=== PATIENT | female | born 1980 | race Caucasian/White ===

== ENCOUNTER 2021-04-01 12:59 | Outpatient (REF) | payer OTHER, SELFPAY ==
[2021-04-03 11:18] LABS: BV Int Neg Control Negative (Negative); BV Int Pos Control Positive (Positive)
[2021-04-03 15:02] LABS: CT PCR NOT DETECTED (Not Detect.); NG PCR NOT DETECTED (Not Detect.)
[2021-04-07 13:47] LABS: HPV mRNA E6/E7 rflx Not Detected (Not Detected)
== END 2021-04-01 13:00 | disposition home or self-care (01) ==
LOC: HO.LAB 12:59
PROVIDERS: Visit Provider Advanced Practice Midwife
DX: Z01.419 Encounter for gynecological examination (general) (routine) without abnormal findings (principal); Z11.51 Encounter for screening for human papillomavirus (HPV); Z20.2 Contact with and (suspected) exposure to infections with a predominantly sexual mode of transmission; F43.21 Adjustment disorder with depressed mood; E66.9 Obesity, unspecified; Z87.42 Personal history of other diseases of the female genital tract
CPT/HCPCS: 87480; 87491; 87510; 87591; 87624; 87660; 88142

== ENCOUNTER 2022-04-05 13:35 | Outpatient (REF) | payer OTHER, SELFPAY ==
[2022-04-09 22:04] LABS: HPV mRNA E6/E7 rflx Not Detected (Not Detected)
== END 2022-04-05 13:36 | disposition home or self-care (01) ==
LOC: HO.LNP 13:35
PROVIDERS: Visit Provider Advanced Practice Midwife
DX: Z01.419 Encounter for gynecological examination (general) (routine) without abnormal findings (principal); Z11.51 Encounter for screening for human papillomavirus (HPV); Z87.42 Personal history of other diseases of the female genital tract
CPT/HCPCS: 87624; 88142

== ENCOUNTER 2022-04-28 09:19 | Outpatient (REF) | payer OTHER, SELFPAY ==
--- NOTE | ~2022-04-28 | MM_ITS ---
EXAMINATION: MM SCREENING DIGITAL BREAST TOMOSYNTHESIS, BILATERAL CLINICAL INFORMATION: Screening. Asymptomatic. The lifetime risk of breast cancer based on the Tyrer-Cuzick Model is 14%. COMPARISON: Mammography: November 13, 2014 and November 03, 2014 TECHNIQUE: Digital breast tomosynthesis is performed in both the craniocaudal and mediolateral oblique views along with computer-aided detection (CAD). Synthesized 2D images are generated from the tomosynthesis. FINDINGS: The breasts are heterogeneously dense, which may obscure small masses (ACR BI-RADS breast composition Category c). There are no significant masses, abnormal calcifications, or other abnormalities. MM/MM tomosynthesis screening BI IMPRESSION: No significant changes ASSESSMENT: BI-RADS 1: Negative RECOMMENDATION: Routine annual mammography screening. This patient's information was entered into a reminder system with a target due date for their next mammogram.
== END 2022-04-28 09:20 | disposition home or self-care (01) ==
LOC: HO.MAMMO 09:19
PROVIDERS: Visit Provider Advanced Practice Midwife
DX: Z12.31 Encounter for screening mammogram for malignant neoplasm of breast (principal)
CPT/HCPCS: 77063; 77067

== ENCOUNTER 2022-05-05 14:14 | Outpatient (REF) | payer OTHER, SELFPAY ==
[2022-05-05 14:59] LABS: Influenza A PCR NEGATIVE (Negative); Influenza B PCR NEGATIVE (Negative); Resp Syncy Virus RNA Qual PCR NEGATIVE (Negative); SARS COV2 PCR INHOUSE NEGATIVE (Negative)
== END 2022-05-05 14:15 | disposition home or self-care (01) ==
LOC: HO.LNP 14:14
PROVIDERS: Visit Provider Nurse Practitioner Family
DX: Z20.822 Contact with and (suspected) exposure to COVID-19 (principal); R09.89 Other specified symptoms and signs involving the circulatory and respiratory systems
CPT/HCPCS: 0241U

== ENCOUNTER 2022-06-07 20:22 | Emergency (ER) | payer OTHER, SELFPAY ==
--- NOTE | 2022-06-07 20:42 | ED_ITS ---
HPI - Nausea/Vomiting/Diarrhea General Chief complaint: Abdominal Pain <Aarti Hollins CNP - Last Filed: 06/07/22 20:45> Stated complaint: Vomiting <Aarti Hollins CNP - Last Filed: 06/07/22 20:45> Time Seen by Provider: 06/07/22 21:05 <Aarti Hollins CNP - Last Filed: 06/07/22 20:45> Source: patient <Jasvir Noriega MD - Last Filed: 06/08/22 00:00> Mode of arrival: ambulatory <Jasvir Noriega MD - Last Filed: 06/08/22 00:00> Limitations: no limitations <Jasvir Noriega MD - Last Filed: 06/08/22 00:00> History of Present Illness HPI Narrative: Patient otherwise healthy had a good day today around 16:00 patient had freshly made steak and 4-day-old leftover food within half an hour patient noticed severe nausea with vomiting multiple times and multiple watery diarrhea had about 10 times each with diffuse abdominal cramping no other family member sick no fever no chills no blood in the stool no recent travel no recent use of antibiotics <Jasvir Noriega MD - Last Filed: 06/08/22 00:00> Related Data Home medications: Home Medications Medication Instructions Recorded Confirmed lorazepam 1 mg tablet 1 mg PO BID PRN 04/01/21 04/05/22 omeprazole 20 mg tablet,delayed 20 mg PO DAILY 04/01/21 04/05/22 release escitalopram oxalate 20 mg tablet 20 mg PO DAILY 04/05/22 04/05/22 (Lexapro) albuterol sulfate 90 mcg/actuation 0 mcg inhalation 05/20/22 aerosol inhaler fexofenadine 180 mg tablet 180 mg PO DAILY 05/20/22 prednisone 50 mg tablet 50 mg PO DAILY 05/20/22 Previous Rx's Medication Instructions Recorded L norgest/E estradiol-E estrad 1 tab PO DAILY 84 days #84 ea 04/05/22 0.15 mg-30 mcg (84)/10 mcg(7) tabs,3mos (Seasonique) amoxicillin 875 mg-potassium 1 tab PO Q12H #14 tabs 05/05/22 clavulanate 125 mg tablet prednisone 20 mg tablet 20 mg PO DAILY #3 tabs 05/20/22 ciprofloxacin HCl 500 mg tablet 500 mg PO BID #6 tabs 06/07/22 (Cipro) dicyclomine 20 mg tablet 20 mg PO QID PRN abdominal pain 06/07/22 #20 tabs ondansetron 4 mg disintegrating 4 mg PO Q6-8H PRN nausea and 06/07/22 tablet vomiting #10 tabs <Aarti Hollins CNP - Last Filed: 06/07/22 20:45> Allergies/Adverse reactions: Allergies Allergy/AdvReac Type Severity Reaction Status Date / Time No Known Allergies Allergy Verified 05/20/22 08:55 [No Known Allergies*] <Aarti Hollins CNP - Last Filed: 06/07/22 20:45> Review of Systems Review of Systems: Yes all other systems are reviewed and are negative <Jasvir Noriega MD - Last Filed: 06/08/22 00:00> [facility] Past Medical History Medical History: Medical History Anxiety Depression H/O gastroesophageal reflux (GERD) Single delivery by <Aarti Hollins CNP - Last Filed: 06/07/22 20:45> Surgical History: Surgical History History of carpal tunnel surgery Hx of section [place] teeth extracted <Aarti Hollins CNP - Last Filed: 06/07/22 20:45> Family History Family History: Family History Father Heart disease Mother Heart disease <Aarit Hollins CNP - Last Filed: 06/07/22 20:45> Social History Social History: Social History Alcohol intake: current Alcohol intake frequency: holidays/special occasions only Patient Tobacco Use Status: Former Tobacco user Advance Directives: No Advance Directives Information Provided: No <Aarti Hollins CNP - Last Filed: 06/07/22 20:45> Physical Exam Vital Signs: Vital Signs: Last Vital Signs Temp 98.1 F 06/07/22 23:19 Pulse 86 06/07/22 23:19 Resp 13 06/07/22 23:19 BP 133/83 06/07/22 23:19 Pulse Ox 99 06/07/22 23:19 O2 Del Method 06/07/22 23:19 BMI result Body Mass Index 39.5 <Aarti Hollins CNP - Last Filed: 06/07/22 20:45> Vital Signs: Last Vital Signs Temp 98.1 F 06/07/22 23:19 Pulse 86 06/07/22 23:19 Resp 13 06/07/22 23:19 BP 133/83 06/07/22 23:19 Pulse Ox 99 06/07/22 23:19 O2 Del Method 06/07/22 23:19 BMI result Body Mass Index 39.5 <Jasvir Noriega MD - Last Filed: 06/08/22 00:00> Appearance: Alert. Oriented X3. No acute distress. Eyes: PERRLA, No Nystagmus ENT: Pharynx normal. Oral Mucosa moist Neck: Normal inspection. Neck supple. CVS: Normal heart rate and rhythm. Pulses normal. Respiratory: No respiratory distress. Equal air entry bilateral, no wheezing/rales/rhonchi Abdomen: Soft , diffuse mild tenderness Bowel sounds are present, no mass palpable, no CVA tenderness Skin: Skin warm and dry. Normal skin color. Normal skin turgor. Extremities: No lower extremity edema. No calf tenderness Neuro: Oriented X 3. No motor deficit. No sensory deficit.No cerebellar signs , cranial nerves II-XII intact <Jasvir Noriega MD - Last Filed: 06/08/22 00:00> Course Course Course Narrative: This is an RME: Additional HPI, ROS, PE not included below will be deferred to primary provider. Patient is a 41 year olf female who presents to the ED for evaluation of nausea, vomiting, diarrhea since 17:00 after eating dinner, home cooked steak. Multiple episodes. associated diffuse ABD pain. Complaining of weakness, chest pain. Fell onto floor in [facility] bathroom, required st aff assistance to get up, denies syncope/ loss of consciousness. Denies head strike. Plan: <Aarti Hollins CNP - Last Filed: 06/07/22 20:45> Medications Administered Discontinued Medications Generic Name Dose Route Start Last Admin Trade Name Freq PRN Reason Stop Dose Admin Dicyclomine HCl 20 mg 06/07/22 21:32 06/07/22 21:41 Dicyclomine Hcl 10 Mg Capsule PO 06/07/22 21:33 20 mg ONCE ONE Administration Sodium Chloride 1,000 mls @ 999 mls/hr 06/07/22 20:45 06/07/22 22:20 Ns IV 06/07/22 21:45 Infused .Q1H1M REENA Infusion Sodium Chloride 1,000 mls @ 999 mls/hr 06/07/22 21:32 06/07/22 22:47 Ns IV 06/07/22 22:32 Infused .Q1H1M ONE Infusion Levofloxacin 500 mg 06/07/22 22:23 06/07/22 22:51 Levofloxacin 500 Mg Tablet PO 06/07/22 22:24 500 mg ONCE ONE Administration Ondansetron HCl 4 mg 06/07/22 20:45 06/07/22 21:16 Ondansetron Hcl 4 Mg/2 Ml Vial IVPUSH 06/07/22 20:46 4 mg ONCE ONE Administration Ondansetron HCl 4 mg 06/07/22 22:28 06/07/22 22:51 Ondansetron Hcl 4 Mg/2 Ml Vial IVPUSH 06/07/22 22:29 4 mg ONCE ONE Administration <Aarti Hollins, GLASS MECH[employer]IC - Last Filed: 06/07/22 20:45> Medications Administered Discontinued Medications Generic Name Dose Route Start Last Admin Trade Name Valente PRN Reason Stop Dose Admin Dicyclomine HCl 20 mg 06/07/22 21:32 06/07/22 21:41 Dicyclomine Hcl 10 Mg Capsule PO 06/07/22 21:33 20 mg ONCE ONE Administration Sodium Chloride 1,000 mls @ 999 mls/hr 06/07/22 20:45 06/07/22 22:20 Ns IV 06/07/22 21:45 Infused .Q1H1M REENA Infusion Sodium Chloride 1,000 mls @ 999 mls/hr 06/07/22 21:32 06/07/22 22:47 Ns IV 06/07/22 22:32 Infused .Q1H1M ONE Infusion Levofloxacin 500 mg 06/07/22 22:23 06/07/22 22:51 Levofloxacin 500 Mg Tablet PO 06/07/22 22:24 500 mg ONCE ONE Administration Ondansetron HCl 4 mg 06/07/22 20:45 06/07/22 21:16 Ondansetron Hcl 4 Mg/2 Ml Vial IVPUSH 06/07/22 20:46 4 mg ONCE ONE Administration Ondansetron HCl 4 mg 06/07/22 22:28 06/07/22 22:51 Ondansetron Hcl 4 Mg/2 Ml Vial IVPUSH 06/07/22 22:29 4 mg ONCE ONE Administration <Jasvir Noriega MD - Last Filed: 06/08/22 00:00> Medical Decision Making Medical Decision Making [facility] Narrative: Patient acute gastroenteritis with slight leukocytosis likely food poisoning/enteritis will give a course of Cipro for 3 days with symptomatic treatment for nausea and diarrhea patient received 2 L of IV fluids feeling much better now taking p.o. fluids <Jasvir Noriega MD - Last Filed: 06/08/22 00:00> Lab Data [facility] Lab Attestation statement: I reviewed the patient's lab results. <Jasvir Noriega MD - Last Filed: 06/08/22 00:00> Result Diagrams: 06/07/22 21:11 06/07/22 21:11 <Aarti Hollins CNP - Last Filed: 06/07/22 20:45> Labs: Lab Results 06/07/22 06/07/22 06/07/22 Range/Units 21:11 21:11 21:11 WBC 14.6 H (4.8-10.8) X10*3/uL RBC 4.93 (4.20-5.50) X10*6/uL Hgb 14.9 (12.0-16.0) g/dl Hct 43.9 (37.0-47.0) % MCV 89.0 (80.0-98.0) fL MCH 30.2 (27.0-33.0) pg MCHC 33.9 (31.0-35.0) g/dl RDW 12.2 (11.0-16.0) % Plt Count 352 (160-400) X10*3/uL MPV 9.1 L (9.4-12.3) fL Immature Gran % (Auto) 0.3 (0.0-0.4) % Neut % (Auto) 92.2 H (45-73) % Lymph % (Auto) 4.0 L (20-40) % [place] % (Auto) 3.2 (2-11) % Eos % (Auto) 0.1 (0-4) % Baso % (Auto) 0.2 (0-2) % Lymph # (Auto) 0.6 L (1.2-4.9) X10*3/uL [place] # (Auto) 0.5 (0.1-1.2) X10*3/uL Eos # (Auto) 0.0 (0.0-0.4) X10*3/uL Baso # (Auto) 0.0 (0.0-0.2) X10*3/uL Abs Immat Gran (auto) 0.05 H (0.00-0.03) X10*3/uL Absolute Neuts (auto) 13.5 H (2.0-8.3) x10*3/uL Absolute Nucleated RBC 0.000 (0.0-0.012) X10*3/uL Nucleated RBC % (auto) 0.0 (0.0-0.2) /100WBC Smear Tech's Comments VERIFIED Sodium 140 (135-145) mmol/L Potassium 4.6 (3.3-5.1) mmol/L Chloride 107 (96-108) mmol/L Carbon Dioxide 18 L (22-29) mmol/L Anion Gap 20 (12-20) BUN 17 H (9-16) mg/dL Creatinine 0.82 (0.5-1.4) mg/dL Estim Creat Clear Calc 115.2 Estimated GFR > 60 Random Glucose 167 H (60-115) mg/dL Calcium 9.4 (8.4-10.2) mg/dL Total Bilirubin 0.8 (0.0-1.0) mg/dL AST 19 (5-31) U/L ALT 27 (0-31) U/L Alkaline Phosphatase 65 (39-117) U/L Troponin I High Sens (<3.5-17.0) ng/L Total Protein 6.8 (6.5-8.0) g/dL Albumin 4.2 (3.5-5.0) g/dL Lipase 20 (8-78) U/L Urine Color Urine Appearance Urine pH (5.0-9.0) Ur Specific [place] (1.005-1.025) Urine Protein (Neg-Trace) mg/dL Urine Glucose (UA) (Negative) mg/dL Urine Ketones (Negative) mg/dL Urine Blood (Negative) Urine Nitrite (Negative) Ur Leukocyte Esterase (Negative) Urine Test (NEGATIVE) COVID-19 (TABATHA) (Negative) COVID-19 Clin Com Influenza Type A (ROMÁN) Negative (Negative) Influenza Type B (ROMÁN) Negative (Negative) Influenza A & B Note See Note 06/07/22 06/07/22 06/07/22 Range/Units 21:11 21:11 22:20 WBC (4.8-10.8) X10*3/uL RBC (4.20-5.50) X10*6/uL Hgb (12.0-16.0) g/dl Hct (37.0-47.0) % MCV (80.0-98.0) fL MCH (27.0-33.0) pg MCHC (31.0-35.0) g/dl RDW (11.0-16.0) % Plt Count (160-400) X10*3/uL MPV (9.4-12.3) fL Immature Gran % (Auto) (0.0-0.4) % Neut % (Auto) (45-73) % Lymph % (Auto) (20-40) % [place] % (Auto) (2-11) % Eos % (Auto) (0-4) % Baso % (Auto) (0-2) % Lymph # (Auto) (1.2-4.9) X10*3/uL [place] # (Auto) (0.1-1.2) X10*3/uL Eos # (Auto) (0.0-0.4) X10*3/uL Baso # (Auto) (0.0-0.2) X10*3/uL Abs Immat Gran (auto) (0.00-0.03) X10*3/uL Absolute Neuts (auto) (2.0-8.3) x10*3/uL Absolute Nucleated RBC (0.0-0.012) X10*3/uL Nucleated RBC % (auto) (0.0-0.2) /100WBC Smear Tech's Comments Sodium (135-145) mmol/L Potassium (3.3-5.1) mmol/L Chloride (96-108) mmol/L Carbon Dioxide (22-29) mmol/L Anion Gap (12-20) BUN (9-16) mg/dL Creatinine (0.5-1.4) mg/dL Estim Creat Clear Calc Estimated GFR Random Glucose (60-115) mg/dL Calcium (8.4-10.2) mg/dL Total Bilirubin (0.0-1.0) mg/dL AST (5-31) U/L ALT (0-31) U/L Alkaline Phosphatase (39-117) U/L Troponin I High Sens < 3.5 (<3.5-17.0) ng/L Total Protein (6.5-8.0) g/dL Albumin (3.5-5.0) g/dL Lipase (8-78) U/L Urine Color Yellow Urine Appearance Clear Urine pH 5.5 (5.0-9.0) Ur Specific [place] 1.020 (1.005-1.025) Urine Protein Negative (Neg-Trace) mg/dL Urine Glucose (UA) Negative (Negative) mg/dL Urine Ketones 80 (Negative) mg/dL Urine Blood Negative (Negative) Urine Nitrite Negative (Negative) Ur Leukocyte Esterase Negative (Negative) Urine Test (NEGATIVE) COVID-19 (TABATHA) Negative (Negative) COVID-19 Clin Com See Note Influenza Type A (ROMÁN) (Negative) Influenza Type B (ROMÁN) (Negative) Influenza A & B Note 06/07/22 Range/Units 22:20 WBC (4.8-10.8) X10*3/uL RBC (4.20-5.50) X10*6/uL Hgb (12.0-16.0) g/dl Hct (37.0-47.0) % MCV (80.0-98.0) fL MCH (27.0-33.0) pg MCHC (31.0-35.0) g/dl RDW (11.0-16.0) % Plt Count (160-400) X10*3/uL MPV (9.4-12.3) fL Immature Gran % (Auto) (0.0-0.4) % Neut % (Auto) (45-73) % Lymph % (Auto) (20-40) % [place] % (Auto) (2-11) % Eos % (Auto) (0-4) % Baso % (Auto) (0-2) % Lymph # (Auto) (1.2-4.9) X10*3/uL [place] # (Auto) (0.1-1.2) X10*3/uL Eos # (Auto) (0.0-0.4) X10*3/uL Baso # (Auto) (0.0-0.2) X10*3/uL Abs Immat Gran (auto) (0.00-0.03) X10*3/uL Absolute Neuts (auto) (2.0-8.3) x10*3/uL Absolute Nucleated RBC (0.0-0.012) X10*3/uL Nucleated RBC % (auto) (0.0-0.2) /100WBC Smear Tech's Comments Sodium (135-145) mmol/L Potassium (3.3-5.1) mmol/L Chloride (96-108) mmol/L Carbon Dioxide (22-29) mmol/L Anion Gap (12-20) BUN (9-16) mg/dL Creatinine (0.5-1.4) mg/dL Estim Creat Clear Calc Estimated GFR Random Glucose (60-115) mg/dL Calcium (8.4-10.2) mg/dL Total Bilirubin (0.0-1.0) mg/dL AST (5-31) U/L ALT (0-31) U/L Alkaline Phosphatase (39-117) U/L Troponin I High Sens (<3.5-17.0) ng/L Total Protein (6.5-8.0) g/dL Albumin (3.5-5.0) g/dL Lipase (8-78) U/L Urine Color Urine Appearance Urine pH (5.0-9.0) Ur Specific [place] (1.005-1.025) Urine Protein (Neg-Trace) mg/dL Urine Glucose (UA) (Negative) mg/dL Urine Ketones (Negative) mg/dL Urine Blood (Negative) Urine Nitrite (Negative) Ur Leukocyte Esterase (Negative) Urine Test NEGATIVE (NEGATIVE) COVID-19 (TABATHA) (Negative) COVID-19 Clin Com Influenza Type A (ROMÁN) (Negative) Influenza Type B (ROMÁN) (Negative) Influenza A & B Note <Aarti Hollins, GLASS MECHANIC - Last Filed: 06/07/22 20:45> Lab Results 06/07/22 06/07/22 06/07/22 Range/Units 21:11 21:11 21:11 WBC 14.6 H (4.8-10.8) X10*3/uL RBC 4.93 (4.20-5.50) X10*6/uL Hgb 14.9 (12.0-16.0) g/dl Hct 43.9 (37.0-47.0) % MCV 89.0 (80.0-98.0) fL MCH 30.2 (27.0-33.0) pg MCHC 33.9 (31.0-35.0) g/dl RDW 12.2 (11.0-16.0) % Plt Count 352 (160-400) X10*3/uL MPV 9.1 L (9.4-12.3) fL Immature Gran % (Auto) 0.3 (0.0-0.4) % Neut % (Auto) 92.2 H (45-73) % Lymph % (Auto) 4.0 L (20-40) % [place] % (Auto) 3.2 (2-11) % Eos % (Auto) 0.1 (0-4) % Baso % (Auto) 0.2 (0-2) % Lymph # (Auto) 0.6 L (1.2-4.9) X10*3/uL [place] # (Auto) 0.5 (0.1-1.2) X10*3/uL Eos # (Auto) 0.0 (0.0-0.4) X10*3/uL Baso # (Auto) 0.0 (0.0-0.2) X10*3/uL Abs Immat Gran (auto) 0.05 H (0.00-0.03) X10*3/uL Absolute Neuts (auto) 13.5 H (2.0-8.3) x10*3/uL Absolute Nucleated RBC 0.000 (0.0-0.012) X10*3/uL Nucleated RBC % (auto) 0.0 (0.0-0.2) /100WBC Smear Tech's Comments VERIFIED Sodium 140 (135-145) mmol/L Potassium 4.6 (3.3-5.1) mmol/L Chloride 107 (96-108) mmol/L Carbon Dioxide 18 L (22-29) mmol/L Anion Gap 20 (12-20) BUN 17 H (9-16) mg/dL Creatinine 0.82 (0.5-1.4) mg/dL Estim Creat Clear Calc 115.2 Estimated GFR > 60 Random Glucose 167 H (60-115) mg/dL Calcium 9.4 (8.4-10.2) mg/dL Total Bilirubin 0.8 (0.0-1.0) mg/dL AST 19 (5-31) U/L ALT 27 (0-31) U/L Alkaline Phosphatase 65 (39-117) U/L Troponin I High Sens (<3.5-17.0) ng/L Total Protein 6.8 (6.5-8.0) g/dL Albumin 4.2 (3.5-5.0) g/dL Lipase 20 (8-78) U/L Urine Color Urine Appearance Urine pH (5.0-9.0) Ur Specific [place] (1.005-1.025) Urine Protein (Neg-Trace) mg/dL Urine Glucose (UA) (Negative) mg/dL Urine Ketones (Negative) mg/dL Urine Blood (Negative) Urine Nitrite (Negative) Ur Leukocyte Esterase (Negative) Urine Test (NEGATIVE) COVID-19 (TABATHA) (Negative) COVID-19 Clin Com Influenza Type A (ROMÁN) Negative (Negative) Influenza Type B (ROMÁN) Negative (Negative) Influenza A & B Note See Note 06/07/22 06/07/22 06/07/22 Range/Units 21:11 21:11 22:20 WBC (4.8-10.8) X10*3/uL RBC (4.20-5.50) X10*6/uL Hgb (12.0-16.0) g/dl Hct (37.0-47.0) % MCV (80.0-98.0) fL MCH (27.0-33.0) pg MCHC (31.0-35.0) g/dl RDW (11.0-16.0) % Plt Count (160-400) X10*3/uL MPV (9.4-12.3) fL Immature Gran % (Auto) (0.0-0.4) % Neut % (Auto) (45-73) % Lymph % (Auto) (20-40) % [place] % (Auto) (2-11) % Eos % (Auto) (0-4) % Baso % (Auto) (0-2) % Lymph # (Auto) (1.2-4.9) X10*3/uL [place] # (Auto) (0.1-1.2) X10*3/uL Eos # (Auto) (0.0-0.4) X10*3/uL Baso # (Auto) (0.0-0.2) X10*3/uL Abs Immat Gran (auto) (0.00-0.03) X10*3/uL Absolute Neuts (auto) (2.0-8.3) x10*3/uL Absolute Nucleated RBC (0.0-0.012) X10*3/uL Nucleated RBC % (auto) (0.0-0.2) /100WBC Smear Tech's Comments Sodium (135-145) mmol/L Potassium (3.3-5.1) mmol/L Chloride (96-108) mmol/L Carbon Dioxide (22-29) mmol/L Anion Gap (12-20) BUN (9-16) mg/dL Creatinine (0.5-1.4) mg/dL Estim Creat Clear Calc Estimated GFR Random Glucose (60-115) mg/dL Calcium (8.4-10.2) mg/dL Total Bilirubin (0.0-1.0) mg/dL AST (5-31) U/L ALT (0-31) U/L Alkaline Phosphatase (39-117) U/L Troponin I High Sens < 3.5 (<3.5-17.0) ng/L Total Protein (6.5-8.0) g/dL Albumin (3.5-5.0) g/dL Lipase (8-78) U/L Urine Color Yellow Urine Appearance Clear Urine pH 5.5 (5.0-9.0) Ur Specific [place] 1.020 (1.005-1.025) Urine Protein Negative (Neg-Trace) mg/dL Urine Glucose (UA) Negative (Negative) mg/dL Urine Ketones 80 (Negative) mg/dL Urine Blood Negative (Negative) Urine Nitrite Negative (Negative) Ur Leukocyte Esterase Negative (Negative) Urine Test (NEGATIVE) COVID-19 (TABATHA) Negative (Negative) COVID-19 Clin Com See Note Influenza Type A (ROMÁN) (Negative) Influenza Type B (ROMÁN) (Negative) Influenza A & B Note 06/07/22 Range/Units 22:20 WBC (4.8-10.8) X10*3/uL RBC (4.20-5.50) X10*6/uL Hgb (12.0-16.0) g/dl Hct (37.0-47.0) % MCV (80.0-98.0) fL MCH (27.0-33.0) pg MCHC (31.0-35.0) g/dl RDW (11.0-16.0) % Plt Count (160-400) X10*3/uL MPV (9.4-12.3) fL Immature Gran % (Auto) (0.0-0.4) % Neut % (Auto) (45-73) % Lymph % (Auto) (20-40) % [place] % (Auto) (2-11) % Eos % (Auto) (0-4) % Baso % (Auto) (0-2) % Lymph # (Auto) (1.2-4.9) X10*3/uL [place] # (Auto) (0.1-1.2) X10*3/uL Eos # (Auto) (0.0-0.4) X10*3/uL Baso # (Auto) (0.0-0.2) X10*3/uL Abs Immat Gran (auto) (0.00-0.03) X10*3/uL Absolute Neuts (auto) (2.0-8.3) x10*3/uL Absolute Nucleated RBC (0.0-0.012) X10*3/uL Nucleated RBC % (auto) (0.0-0.2) /100WBC Smear Tech's Comments Sodium (135-145) mmol/L Potassium (3.3-5.1) mmol/L Chloride (96-108) mmol/L Carbon Dioxide (22-29) mmol/L Anion Gap (12-20) BUN (9-16) mg/dL Creatinine (0.5-1.4) mg/dL Estim Creat Clear Calc Estimated GFR Random Glucose (60-115) mg/dL Calcium (8.4-10.2) mg/dL Total Bilirubin (0.0-1.0) mg/dL AST (5-31) U/L ALT (0-31) U/L Alkaline Phosphatase (39-117) U/L Troponin I High Sens (<3.5-17.0) ng/L Total Protein (6.5-8.0) g/dL Albumin (3.5-5.0) g/dL Lipase (8-78) U/L Urine Color Urine Appearance Urine pH (5.0-9.0) Ur Specific [place] (1.005-1.025) Urine Protein (Neg-Trace) mg/dL Urine Glucose (UA) (Negative) mg/dL Urine Ketones (Negative) mg/dL Urine Blood (Negative) Urine Nitrite (Negative) Ur Leukocyte Esterase (Negative) Urine Test NEGATIVE (NEGATIVE) COVID-19 (TABATHA) (Negative) COVID-19 Clin Com Influenza Type A (ROMÁN) (Negative) Influenza Type B (ROMÁN) (Negative) Influenza A & B Note <Jasvir Noriega MD - Last Filed: 06/08/22 00:00> Discharge Plan Discharge Clinical Impression: Gastroenteritis <Aarti Hollins CNP - Last Filed: 06/07/22 20:45> Patient Disposition: Home, Self-Care <Aarti Hollins CNP - Last Filed: 06/07/22 20:45> Instructions: Gastroenteritis (ED) <Aarti Hollins CNP - Last Filed: 06/07/22 20:45> Additional Instructions: Drink plenty of fluids Antibiotic for 3 days Medicine for nausea and abdominal cramps/diarrhea as prescribed Follow with your PCP if not better <Aarti Hollins CNP - Last Filed: 06/07/22 20:45> Prescriptions: New ciprofloxacin HCl [Cipro] 500 mg tablet 500 mg PO BID Qty: 6 0RF dicyclomine 20 mg tablet 20 mg PO QID PRN (Reason: abdominal pain) Qty: 20 0RF ondansetron 4 mg tablet,disintegrating 4 mg PO Q6-8H PRN (Reason: nausea and vomiting) Qty: 10 0RF No Action amoxicillin-pot clavulanate 875-125 mg tablet 1 tab PO Q12H Qty: 14 0RF albuterol sulfate 90 mcg/actuation HFA aerosol inhaler 0 mcg inhalation fexofenadine 180 mg tablet 180 mg PO DAILY prednisone 50 mg tablet 50 mg PO DAILY prednisone 20 mg tablet 20 mg PO DAILY Qty: 3 0RF escitalopram oxalate [Lexapro] 20 mg tablet 20 mg PO DAILY L norgest/e.estradiol-e.estrad [Seasonique] 0.15 mg-30 mcg (84)/10 mcg (7) tablets,dose pack,3 month 1 tab PO DAILY 84 Days Qty: 84 5RF lorazepam 1 mg tablet 1 mg PO BID PRN omeprazole 20 mg tablet,delayed release (DR/EC) 20 mg PO DAILY <Aarti Hollins CNP - Last Filed: 06/07/22 20:45> Stand Alone Forms: Work/School Release <Aarti Hollins CNP - Last Filed: 06/07/22 20:45>
--- NOTE | 2022-06-07 20:45 | ECG_ITS ---
Test Reason : nausea Blood Pressure : / mmHG Vent. Rate : 091 BPM Atrial Rate : 091 BPM P-R Int : 162 ms QRS Dur : 080 ms QT Int : 394 ms P-R-T Axes : 025 064 015 degrees QTc Int : 484 ms Normal sinus rhythm Nonspecific ST and T wave abnormality No previous ECGs available Referred By: Aarti Hollins Electronically Signed By:ELIDIA CUMMINS MD
[2022-06-07 20:54] VITALS: BP 105/78; PULSE 96; RESP 20; TEMP 37; O2SAT 100; BMI 39.5
[2022-06-07 20:56] VITALS: BP 122/73; PULSE 92; RESP 20; TEMP 37; O2SAT 100
[2022-06-07] MEDS: ondansetron HCL 4 MG/2 ML VIAL IVPUSH ×2 (21:16→22:51)
[2022-06-07] MEDS: 0.9 % Sodium Chloride 1,000 ML 999 ML IV ×2 (21:17→21:43)
[2022-06-07 21:19] LABS: Basophils Percent Auto 0.2 % (0-2); Eosinophils Percent Auto 0.1 % (0-4); Hematocrit 43.9 % (37.0-47.0); Hemoglobin 14.9 g/dl (12.0-16.0); Imm Gran Abs Auto 0.05 X10*3/uL (0.00-0.03); Imm Gran Pct Auto 0.3 % (0.0-0.4); Lymphocytes Absolute Auto 0.6 X10*3/uL (1.2-4.9); MANUAL DIFF FLAG SCAN; Mean Corpuscular HGB Conc 33.9 g/dl (31.0-35.0); Mean Corpuscular Hemoglobin 30.2 pg (27.0-33.0); Mean Platelet Volume 9.1 fL (9.4-12.3); Monocytes Absolute Auto 0.5 X10*3/uL (0.1-1.2); Monocytes Percent Auto 3.2 % (2-11); Neutrophils Absolute Auto 13.5 x10*3/uL (2.0-8.3); Neutrophils Percent Auto 92.2 % (45-73); Platelet Count 352 X10*3/uL (160-400); Red Blood Count 4.93 X10*6/uL (4.20-5.50); Red Cell Distribution Width 12.2 % (11.0-16.0); SCAN SMEAR FLAG 1; White Blood Count 14.6 X10*3/uL (4.8-10.8)
[2022-06-07 21:35] LABS: Alanine Aminotransferase 27 U/L (0-31); Albumin Level 4.2 g/dL (3.5-5.0); Alkaline Phosphatase 65 U/L (39-117); Anion Gap 20 (12-20); Aspartate Amino Transferase 19 U/L (5-31); Bilirubin Total 0.8 mg/dL (0.0-1.0); Blood Urea Nitrogen 17 mg/dL (9-16); Calcium 9.4 mg/dL (8.4-10.2); Carbon Dioxide 18 mmol/L (22-29); Chloride 107 mmol/L (96-108); Creatinine Clr Calc Pharmacy 115.2; Estimated Glomerular Filt Rate > 60; Glucose Random 167 mg/dL (60-115); Lipase 20 U/L (8-78); Potassium 4.6 mmol/L (3.3-5.1); Sodium 140 mmol/L (135-145); Total Protein 6.8 g/dL (6.5-8.0)
[2022-06-07 21:40] LABS: COVID-19 Test Negative (Negative); IDNOW Serial# 6674DD1D
[2022-06-07] MEDS: Dicyclomine HCl 10 MG CAPSULE 20 MG PO (21:41)
[2022-06-07 21:42] LABS: Troponin-I High Sensitivity < 3.5 ng/L (<3.5-17.0)
[2022-06-07 21:55] LABS: SLIDE REVIEW VERIFIED
[2022-06-07 22:03] LABS: IDNOW Serial# 55D5AD1C; Influenza A Negative (Negative)
[2022-06-07 22:04] LABS: Influenza B2 Negative (Negative)
[2022-06-07 22:50] LABS: Appearance Urine Clear; Color Urine Yellow; Glucose Urine UA Negative (Negative); Leukocyte Esterase Urine Negative (Negative); Nitrite Urine Negative (Negative); PH 5.5 (5.0-9.0); Urine Blood Negative (Negative); Urine Ketones 80 mg/dL (Negative); Urine Protein Negative (Neg-Trace)
[2022-06-07 22:51] LABS: UPreg QC Valid YES; Urine Pregnancy NEGATIVE (NEGATIVE)
[2022-06-07] MEDS: levoFLOXacin 500 MG TABLET PO (22:51)
[2022-06-07 23:19] VITALS: BP 133/83; PULSE 86; RESP 13; TEMP 36.7; O2SAT 99
[2022-06-08] MEDS: 0.9 % Sodium Chloride 1,000 ML 999 ML IV (00:15)
[2022-06-08] MEDS: Prochlorperazine Edisylate 10 MG/2 ML VIAL IVPUSH (00:15)
[2022-06-08] MEDS: Loperamide HCl 2 MG CAPSULE PO (00:15)
[2022-06-08 00:45] VITALS: BP 132/80; PULSE 95; RESP 17; O2SAT 97
== END 2022-06-08 01:27 | disposition home or self-care (01) ==
PROVIDERS: Nurse Practitioner Family; Emergency Provider Internal Medicine
DX: K52.9 Noninfective gastroenteritis and colitis, unspecified (principal); Z20.822 Contact with and (suspected) exposure to COVID-19; Z20.828 Contact with and (suspected) exposure to other viral communicable diseases; Z79.899 Other long term (current) drug therapy
CPT/HCPCS: 36415; 80053; 81003; 81025; 83690; 84484; 85025; 87502; 87635; 93005; 96361; 96374; 96375; 96376; 99284; J2405

== ENCOUNTER 2023-04-07 13:04 | Outpatient (REF) | payer OTHER, SELFPAY ==
[2023-04-07 18:39] LABS: CT PCR NOT DETECTED (Not Detect.); NG PCR NOT DETECTED (Not Detect.)
[2023-04-09 11:33] LABS: BV Int Neg Control Negative (Negative); BV Int Pos Control Positive (Positive)
[2023-04-14 02:04] LABS: HPV mRNA E6/E7 rflx Not Detected (Not Detected)
== END 2023-04-07 13:05 | disposition home or self-care (01) ==
LOC: HO.LNP 13:04
PROVIDERS: Visit Provider Advanced Practice Midwife
DX: Z12.4 Encounter for screening for malignant neoplasm of cervix (principal); Z11.51 Encounter for screening for human papillomavirus (HPV); Z87.42 Personal history of other diseases of the female genital tract; E66.01 Morbid (severe) obesity due to excess calories; Z20.2 Contact with and (suspected) exposure to infections with a predominantly sexual mode of transmission; R55 Syncope and collapse; R03.0 Elevated blood-pressure reading, without diagnosis of hypertension
CPT/HCPCS: 0353U; 87480; 87510; 87624; 87660; 88142

== ENCOUNTER 2023-04-07 13:04 | Outpatient (AMB) | payer OTHER, SELFPAY ==
--- NOTE | 2023-04-07 13:07 | A.OFFVIS_ITS ---
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 Intake Note: questions on possible PMDD and would like a IUD placed Lime Kiln Tender Required: No Information Interpreted: non-clinical & clinical Air Defense Specialist: Air Defense Specialist Present (Jon) Allergies No Known Allergies [No Known Allergies*] Allergy (Verified 04/07/23 13:12) Medication List - Last Reconciled 04/07/23 by Estella Skelton CNM albuterol sulfate 90 mcg/actuation 0 mcg inhalation escitalopram oxalate (Lexapro) 20 mg PO DAILY L norgest/e.estradiol-e.estrad 0.15 mg-30 mcg (84)/10 mcg (7) (Seasonique) 1 tab PO DAILY 84 days lorazepam 1 mg PO BID PRN omeprazole 20 mg PO DAILY ondansetron 4 mg PO Q6-8H PRN Is last menstrual period known: Yes Last menstrual period: 03/21/23 Post menopausal: No HPI 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 But she still notices the week before her period that she has very labile emotional symptoms even though she is on the season ache OCPs that a lower to have a menses only once every 3 months she is wondering about having a Mirena placed. It we discussed that had her visit last year and she says she needed to think about it the during this past year. She is sexually active now. 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 And she thinks that may be contributing to it she really wishes she could do things on her own to lose weight and is reluctant to do surgery she said her had lap band surgery and had some issues with it in needed to have it removed moved. He later of cancer. [facility] Medical History Single delivery by H/O gastroesophageal reflux (GERD) Depression Anxiety Surgical History [place] teeth extracted History of carpal tunnel surgery Hx of section Family History Father Heart disease Mother Heart disease Social History Alcohol intake: current Alcohol intake frequency: holidays/special occasions only Patient Tobacco Use Status: Former Tobacco user Female Reproductive History Menstrual Age of Menarche: 14 Duration of menses: 3-5 days Date of last menstrual period: 03/21/23 control method: pills Total pregnancies: 2 Full term: 1 Number of Living Children: 1 Ab spontaneous: 1 Date of last pap smear: 04/07/22 (negative) History of abnormal pap smear: Yes (2020 ASCUS (and hpv pos before that....)) Date of Mammogram: 04/28/22 Physical Exam Vital Signs: Last Vital Signs BP 144/92 H 04/07/23 13:09 BMI result Body Mass Index 41.6 Const Other: Obesity noted General: healthy appearing, comfortable, no acute distress, well developed and alert Nutritional Appearance: average body habitus and obese Orientation/consciousness: patient oriented x3 Limitations: no limitations HEENT Head: Yes normocephalic Neck Neck: Yes normal visual inspection Thyroid: Thyroid normal Chest Chest palpation & inspection: normal inspection of the chest Breast/axilla inspection: normal inspection of the breasts and normal inspection of the axillae Breast/axilla palpation: normal palpation of the breasts and normal palpation of the axillae Resp Effort & Inspection: normal respiratory effort GI Inspection: Yes normal to inspection, No Abdominal wall edema and No distended Palpation (GI): Soft to palpation and nontender Other: Cervix nulliparous very anterior slightly difficult to reach uterus difficult to feel secondary to adipose. Bleeding from within the os noted sometime after the speculum was placed but before Pap or swabs were done. Patient had a vasovagal response after removal of speculum. General: Yes bladder normal to palpation External Female Exam: normal external appearance and normal appearance of the urethra Speculum Exam - Vagina: normal appearance of the vagina, normal palpation and normal vaginal discharge Speculum Exam - Cervix: normal appearance of the cervix, normal palpation and nontender Bimanual exam- vagina & uterus: normal bimanual exam, normal palpation, uterine size normal, bladder normal to palpation, consistency normal, normal palpation, uterine mobility normal, uterine shape normal, No Cervical tenderness present, non-tender and no cervical motion tenderness Bimanual Exam- Adnexa, other: normal adnexae, no masses, normal and No adnexal tenderness Neuro General: patient oriented x3 Results Reviewed Results Reviewed: Name: Nika Arce Age/Sex: 41/F Attending: Estella Skelton CNM : 1980 Submitted by: Estella Skelton CNM Copies to: MR #: [id number] Status: DEP REF Collected: 04/05/22 Location: [facility] Received: 04/07/22 Interpretation Satisfactory for evaluation. Negative for intraepithelial lesion or malignancy. HPV mRNA E6/E7: NOT DETECTED This assay detects E6/E7 viral messenger RNA (mRNA) from 14 high-risk HPV types (16, 18, 31, 33, 35, 39, 45, 51, 52, 56, 58, 59, 66, 68) HPV testing performed by [facility], [place], [place]. See reference laboratory portion of the EMR for entire report. Clinical Information LMP:03/20/22 Previous PAP test:04/05/21 Other history:ASCUS Material Received ThinPrep-Cervical Electronically Signed By: Mery Powers 04/22/22 5711 The Pap Test is a screening procedure with the inherent possibility of both false negative and false positive results. Results should be interpreted in the context of historic and current clinical findings. Reliability of the Pap Test is enhanced by performing the test on a regular repetitive basis. Patient: Nika Arce Age/Sex: 41/F MR#: [id number] Page 1 of 1 Assessment & Plan Assessment & Plan (1) Hx of abnormal cervical Pap smear: Comment: HX OF POS HPV IN PAST,04/01/21 pap= ascus, neg hpv.- asccp recs repeat in 3 yrs..----- PER DISCUSSION W PT REPE.AT PAP W HPV 04/21.- pap repeated 04/05/22= negative with negative HPV. During speculum exam cervix bled from within os briskly before touched with Q-tip or anything Pap repeated 04/07/2023. Code(s): Z87.42 - Personal history of other diseases of the female genital tract (2) Obesity, morbid, BMI 40.0-49.9: Code(s): E66.01 - Morbid (severe) obesity due to excess calories (3) Surveillance for control, oral contraceptives: Code(s): Z30.41 - Encounter for surveillance of contraceptive pills (4) Counseling for control, intrauterine device: Code(s): Z30.09 - Encounter for other general counseling and advice on contraception (5) Vaso-vagal reaction: Code(s): R55 - Syncope and collapse (6) Elevated blood pressure reading: Code(s): R03.0 - Elevated blood-pressure reading, without diagnosis of hypertension Plan -----Discussed in this visit the following: healthy balanced diet, regular and consistent exercise, getting recommended health screens, doing the best she can for her particular health concerns, kegel exercises, pap smear screening and followup recommendations, mammography screening and SBE, normal changes in cycles in her life stage--- . She is up-to-date on her mammograms. Decision to repeat the Pap was made quickly when she had unexpected bleeding from within the os before was touched. Lengthy discussion about her experience of PMDD and what to do about it and previous discussions about the Mirena IU S and how in fact this may be a solution in that it might lead to few were periods and then few her opportunities to feel PMDD on the other hand it is possible she may still feel those symptoms and it may not make a difference what so ever. She decided that she will try it. The patient did have a vasovagal response after sitting up from having the Pap smear done it was delayed by a couple of minutes. Discussed the possible rationale for this from just having had some cervical stimulation. Discussed that she should expect the same thing to happen when she comes for the Mirena. She is going to time Mirena insertion by setting an appointment date for Mirena insertion and then stopping the active pills around 3 days before hand to mimic her placebo week of pills. The goal is to have her heaviest day of her period when she comes in for the Mirena insertion. I also recommend being very clear that she has no unsafe exposure before hand . Also discussed weight loss. Discussed that it does get harder as 1 gets older and the longer goes on the harder it gets. She may need to really increase her efforts in order to see results and it does get difficult when she has a sedentary job. Offered brochure for her to think about the weight management out program but she is not currently interested. Orders: Orders Bacterial Vaginosis Panel Today Z11.3 - Encounter for screening for infections with a predominantly sexual mode of transmission CT NG by PCR Today Z11.3 - Encounter for screening for infections with a predominantly sexual mode of transmission Pap Smear Today Z87.42 - Personal history of other diseases of the female genital tract Coding Level of Care Code Est Pt Prev Care 40-64y(27884) Diagnoses Hx of abnormal cervical Pap smear Z87.42 Obesity, morbid, BMI 40.0-49.9 E66.01 Surveillance for control, oral contraceptives Z30.41 Counseling for control, intrauterine device Z30.09 Vaso-vagal reaction R55 Elevated blood pressure reading R03.0
[2023-04-07 13:09] VITALS: BP 144/92; BMI 41.6
== END 2023-04-07 14:16 | disposition home or self-care (01) ==
PROVIDERS: Visit Provider Advanced Practice Midwife
DX: Z01.419 Encounter for gynecological examination (general) (routine) without abnormal findings (principal); R03.0 Elevated blood-pressure reading, without diagnosis of hypertension; R55 Syncope and collapse; Z30.41 Encounter for surveillance of contraceptive pills; Z87.42 Personal history of other diseases of the female genital tract; E66.01 Morbid (severe) obesity due to excess calories
CPT/HCPCS: 99396

== ENCOUNTER 2023-05-11 09:24 | Outpatient (REF) | payer OTHER, SELFPAY ==
--- NOTE | ~2023-05-11 | MM_ITS ---
EXAMINATION: MM SCREENING DIGITAL BREAST TOMOSYNTHESIS, BILATERAL CLINICAL INFORMATION: Screening. Asymptomatic. COMPARISON: Mammography: This study is compared with prior exams dating back to 2015. TECHNIQUE: Digital breast tomosynthesis is performed in both the craniocaudal and mediolateral oblique views along with computer-aided detection (CAD). Synthesized 2D images are generated from the tomosynthesis. FINDINGS: There are scattered areas of fibroglandular density (ACR BI-RADS breast composition Category b). In the upper outer quadrant of the right breast, there is a focal asymmetry which warrants additional mammographic and targeted sonographic evaluation. The remainder of the right breast is normal. In the left breast, there are no significant masses, abnormal calcifications, or other abnormalities. MM/MM tomosynthesis screening BI IMPRESSION: Focal asymmetry of the right breast warrants additional mammographic and targeted sonographic imaging. No mammographic signs of malignancy right breast. ASSESSMENT: BI-RADS BI-RADS 0 - Incomplete: Needs additional Imaging. RECOMMENDATION: 1. Additional views of the right breast 2. Targeted ultrasound if warranted after review of the additional views. 3. Radiology department staff will contact the patient for additional imaging. Additional Imaging required This examination should not preclude the clinical evaluation of a suspicious palpable abnormality. This patient's information was entered into a reminder system with a target due date for their next mammogram.
== END 2023-05-11 09:25 | disposition home or self-care (01) ==
LOC: HO.MAMMO 09:24
PROVIDERS: PCP Nurse Practitioner Family; Visit Provider Nurse Practitioner Family
DX: Z12.31 Encounter for screening mammogram for malignant neoplasm of breast (principal)
CPT/HCPCS: 77063; 77067

== ENCOUNTER → 2023-05-11 09:30 | Outpatient (BNV) | payer OTHER, SELFPAY | PROVIDERS: PCP Nurse Practitioner Family; Visit Provider Radiology Diagnostic Radiology | DX: Z12.31 Encounter for screening mammogram for malignant neoplasm of breast (principal) | CPT/HCPCS: 77063; 77067 ==

== ENCOUNTER 2023-06-08 13:20 | Outpatient (REF) | payer OTHER, SELFPAY ==
--- NOTE | ~2023-06-08 | US_ITS ---
EXAMINATION: MM DIAGNOSTIC DIGITAL BREAST TOMOSYNTHESIS, RIGHT US BREAST LIMITED, RIGHT MAMMOGRAPHY: CLINICAL INFORMATION: Diagnostic right mammogram. Follow-up focal asymmetry seen on screening exam right breast approximate 9:00 axis middle one third. COMPARISON: Mammography: 05/11/2023, [place]20[place] 10/04/[place] ([place]). TECHNIQUE: Digital breast tomosynthesis is performed in both the craniocaudal and mediolateral oblique views along with computer-aided detection (CAD). Synthesized 2D images are generated from the tomosynthesis. FINDINGS: There are scattered areas of fibroglandular density (ACR BI-RADS breast composition Category b). Diagnostic views demonstrate persistence of the focal asymmetry in the 9:00 axis of the right breast middle one third. This will be evaluated with ultrasound. No additional suspicious findings noted on the right ML view. ULTRASOUND: CLINICAL INFORMATION: Evaluate focal asymmetry 9:00 axis right breast, middle one third. COMPARISON: [place] imaging right breast ultrasound 11/03/2014. TECHNIQUE: Targeted sonographic evaluation was performed using a high frequency linear transducer. Attention was given to the 7:00 to the 11:00 axis of the right breast to include the area of concern. Selected archived documentation. FINDINGS: RIGHT BREAST: There is a simple cyst present in the 9:00 axis, 7 cm from the nipple, measuring 0.5 x 0.3 x 0.6 cm. This correlates well with the mammographic focus of concern and is benign. No further follow-up recommended. No additional abnormality identified. US/US breast RT limited mamm only IMPRESSION: Simple cyst right breast 9:00 axis, correlating with the mammographic focal asymmetry. This is benign. There are no findings suspicious for malignancy in the right breast. Recommend returning to routine screening. OVERALL ASSESSMENT: Mammography: BI-RADS 2 - Benign Findings Ultrasound: BI-RADS 2 - Benign Findings RECOMMENDATION: 1 year F/U This patient's information was entered into a reminder system with a target due date for their next mammogram.
== END 2023-06-08 13:21 | disposition home or self-care (01) ==
LOC: HO.MAMMO 13:20
PROVIDERS: PCP Nurse Practitioner Family; Visit Provider Nurse Practitioner Family
DX: R92.8 Other abnormal and inconclusive findings on diagnostic imaging of breast (principal)
CPT/HCPCS: 76642; 77061; 77065

== ENCOUNTER → 2023-06-08 13:30 | Outpatient (BNV) | payer OTHER, SELFPAY | PROVIDERS: PCP Nurse Practitioner Family; Visit Provider Radiology Diagnostic Radiology | DX: R92.8 Other abnormal and inconclusive findings on diagnostic imaging of breast (principal) | CPT/HCPCS: 76642; 77061; 77065 ==

== ENCOUNTER 2023-06-15 08:40 | Outpatient (AMB) | payer OTHER, SELFPAY ==
--- NOTE | 2023-06-15 08:41 | MHC.OFFWIV ---
Intake Vital Signs 06/15/23 08:43 Height 5 ft 6 in Weight 257 lb BMI 41.5 BP 120/78 Blood Pressure Location Rt brachial Position Sitting Pulse 87 Pulse Source Pulse Oximeter Temp 97.8 F Temp Source Oral Pulse Oximetry (%) 97 Oxygen Delivery Method Room Air Intake Visit Reasons: EP LT hip Pain Intake Note: Pt is here c/o left hip pain. Pt states no falls or injuries. Patient Tobacco Use Status: Former Tobacco user Allergies No Known Allergies [No Known Allergies*] Allergy (Verified 06/15/23 08:43) Do you need a note to return to daycare/school/sports/work: Yes HPI HPI Comments History of Present Illness Details This is a 42-year-old female with a past medical history of asthma and gastroesophageal reflux disease presenting for evaluation of left hip pain that has been present for the past 1 month. Patient denies any injury or trauma preceding the onset of her symptoms and has been taking Advil sporadically without complete relief of her discomfort. Patient states that she is in pain both at rest and with activity but noted today that she had difficulty lifting her left leg when trying to put on her pants and the pain will radiate to her low back. Patient denies having any rashes, lesions, abdominal pain, numbness or tingling in the left lower extremity. [facility] Medical History Single delivery by H/O gastroesophageal reflux (GERD) Depression Anxiety Surgical History [place] teeth extracted History of carpal tunnel surgery Hx of section Family History Father Heart disease Mother Heart disease Social History Alcohol intake: current Alcohol intake frequency: holidays/special occasions only Patient Tobacco Use Status: Former Tobacco user Female Reproductive History Menstrual Age of Menarche: 14 Review of Systems Const All systems reviewed & are unremarkable except as noted in HPI and below Reports as per HPI Musc Reports no additional complaints, Reports back pain, Reports arthralgias (left hip) and Denies joint swelling Skin/Breast Reports system reviewed and no additional complaints, except as documented Physical Exam Vital Signs: Last Vital Signs Temp 97.8 F 06/15/23 08:43 Pulse 87 06/15/23 08:43 BP 120/78 06/15/23 08:43 Pulse Ox 97 06/15/23 08:43 Oxygen Delivery Method Room Air 06/15/23 08:43 BMI result Body Mass Index 41.5 Const General: cooperative, comfortable, well developed, alert and awake; No ill appearing Nutritional Appearance: well nourished and overweight Orientation/consciousness: patient oriented x3 Limitations: no limitations GI Palpation (GI): Soft to palpation, nontender and no guarding Auscultation: normal bowel sounds General: Yes no CVA tenderness Back/Spine/Pelvis Back: no CVA tenderness Thoracic/Lumbar Spine: thoracic and lumbar spine normal to inspection, straight leg raise negative bilaterally, pain with thoraco-lumbar ROM (left lumbar paraspinous tenderness with flexion) and No lumbar spinal tenderness Pelvis: no pain with lateral compression Sacroiliac joints: bilaterally nontender Sacrum: no ecchymosis and no erythema Skin General skin exam: no rashes or lesions noted Neuro General: patient oriented x3 Extrem Left lower extremity: normal to inspection, full ROM (no pain with left hip flexion against resistance) and hip/thigh Details: normal to inspection and tenderness Location: of the hip and other (left hip flexor) Psych Appearance: grossly normal Mental Status: mental status grossly normal Insight: Good insight present (Psych) Judgement: Good judgement present (Psych) Assessment & Plan Assessment & Plan (1) Hip flexor tendinitis: Comment: Given this patient's history coupled with her examination, imaging is deferred at this time. Code(s): M76.899 - Other specified enthesopathies of unspecified lower limb, excluding foot Plan: Naprosyn and Robaxin for 7-10 days; patient will follow up with her primary care provider for a re-evaluation and consideration of referral for physical therapy. Medications: New naproxen (Naprosyn) 500 mg PO BID 20 tabs 0RF methocarbamol 750 mg PO Q8H 20 tabs 0RF Coding Level of Care Code Est Pt Level 3 (58281) Diagnoses Hip flexor tendinitis M76.899 Time Spent (min) 20
[2023-06-15 08:43] VITALS: BP 120/78; PULSE 87; TEMP 36.6; O2SAT 97; BMI 41.5
== END 2023-06-15 10:10 | disposition home or self-care (01) ==
PROVIDERS: PCP Nurse Practitioner Family; Visit Provider Physician Assistant
DX: M76.899 Other specified enthesopathies of unspecified lower limb, excluding foot (principal)
CPT/HCPCS: 99213

== ENCOUNTER → 2024-05-13 09:15 | Outpatient (BNV) | payer OTHER, SELFPAY | PROVIDERS: PCP Nurse Practitioner Family; Visit Provider Internal Medicine | DX: Z12.31 Encounter for screening mammogram for malignant neoplasm of breast (principal) | CPT/HCPCS: 77063; 77067 ==

== ENCOUNTER 2024-05-13 09:20 | Outpatient (REF) | payer OTHER, SELFPAY | END 2024-05-13 09:21 | disposition home or self-care (01) | LOC: HO.MAMMO 09:20 | PROVIDERS: PCP Nurse Practitioner Family; Visit Provider Nurse Practitioner Family | DX: Z12.31 Encounter for screening mammogram for malignant neoplasm of breast (principal) | CPT/HCPCS: 77063; 77067 ==

== ENCOUNTER 2024-07-01 08:37 | Outpatient (AMB) | payer OTHER, SELFPAY ==
--- NOTE | 2024-07-01 09:03 | AM.OFFWIN_ITS ---
Intake Vital Signs 07/01/24 09:14 Weight 260 lb BP 140/100 H Blood Pressure Location Lt brachial Position Sitting Pulse 86 Pulse Source Pulse Oximeter Pulse Oximetry (%) 97 Oxygen Delivery Method Room Air Intake Visit Reasons: EP-lower back pain [phone] Intake Note: Patient here for lower back pain that has been going on for about 4 days. Patient Tobacco Use Status: Former Tobacco user Allergies No Known Allergies [No Known Allergies*] Allergy (Verified 07/01/24 09:03) Do you need a note to return to daycare/school/sports/work: No HPI HPI Comments History of Present Illness Details 43 y/o female patient who presents to [facility] in clinic with c/o Lower back pain for 4 days now. She lifted heavy objects at home. Denies numbness or tingling. Denies Urinary or bowel symptoms. Denies trauma to the back. [facility] TO [facility] Medical History (Updated 07/01/24 @ 09:18 by Little Lozano NP) Low back pain Single delivery by H/O gastroesophageal reflux (GERD) Depression Anxiety Surgical History [place] teeth extracted History of carpal tunnel surgery Hx of section Family History Father Heart disease Mother Heart disease Social History Alcohol intake: current Alcohol intake frequency: holidays/special occasions only Patient Tobacco Use Status: Former Tobacco user Female Reproductive History Menstrual Age of Menarche: 14 Review of Systems Const All systems reviewed & are unremarkable except as noted in HPI and below Physical Exam Vital Signs: Last Vital Signs Pulse 86 07/01/24 09:14 BP 140/100 H 07/01/24 09:14 Pulse Ox 97 07/01/24 09:14 Oxygen Delivery Method Room Air 07/01/24 09:14 Const General: cooperative and no acute distress; No comfortable Nutritional Appearance: obese Orientation/consciousness: patient oriented x3 Back/Spine/Pelvis Back: back tenderness Thoracic/Lumbar Spine: paraspinal muscle tenderness, thoraco-lumbar ROM limited (Due to pain), thoraco-lumbar spasm and lumbar spinal tenderness Neuro General: patient oriented x3, gait normal and moves all extremities Assessment & Plan Assessment & Plan (1) Low back pain: Code(s): M54.50 - Low back pain, unspecified Qualifiers: Back pain laterality: midline Chronicity: acute Sciatica presence: without sciatica Qualified Code(s): M54.50 - Low back pain, unspecified Plan: Rest your back. Apply Ice/Hot Take Ibuprofen Alternating with Acetaminophen for pain relief Ordered Muscle relaxants. Medications: New cyclobenzaprine 10 mg PO BID 20 tabs 0RF M54.50 - Low back pain, unspecified acetaminophen 1,000 mg (2 x 500 mg) PO Q6H PRN 30 caps 0RF pain M54.50 - Low back pain, unspecified lidocaine 5% leave on most painful area for up to 12 hrs 1 patch topical DAILY 30 ea 0RF M54.50 - Low back pain, unspecified Refilled naproxen (Naprosyn) 500 mg PO BID 30 tabs 0RF M54.50 - Low back pain, unspecified Coding Level of Care Code Est Pt Level 4 (11419) Diagnoses Acute midline low back pain without sciatica M54.50 Back pain laterality: midline Chronicity: acute Sciatica presence: without sciatica Time Spent (min) 20
[2024-07-01 09:14] VITALS: BP 140/100; PULSE 86; O2SAT 97
== END 2024-07-01 09:37 | disposition home or self-care (01) ==
PROVIDERS: PCP Nurse Practitioner Family; Visit Provider Nurse Practitioner Family
DX: M54.50 Low back pain, unspecified (principal)

== ENCOUNTER 2024-07-12 14:05 | Outpatient (AMB) | payer OTHER, SELFPAY ==
--- NOTE | 2024-07-12 14:25 | A.OFFVIS_ITS ---
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: Bottom Cementer Present (Flakita) Accompanied by: Self / Same As Patient Allergies No Known Allergies [No Known Allergies*] Allergy (Verified 07/12/24 14:37) Medication List - Last Reconciled 07/12/24 by Estella Skelton CNM acetaminophen 1,000 mg (2 x 500 mg) PO Q6H PRN albuterol sulfate 90 mcg/actuation 0 mcg inhalation bupropion HCl XL mg PO DAILY cyclobenzaprine 10 mg PO BID escitalopram oxalate (Lexapro) 20 mg PO DAILY L norgest/e.estradiol-e.estrad 0.15 mg-30 mcg (84)/10 mcg (7) (Simpesse) 1 tab PO DAILY lidocaine 5% 1 patch topical DAILY lorazepam 1 mg PO BID PRN naproxen (Naprosyn) 500 mg PO BID omeprazole 20 mg PO DAILY ondansetron 4 mg PO Q6-8H PRN Is last menstrual period known: Yes Last menstrual period: 06/25/24 Post menopausal: No Patient : No HPI HPI 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 She says she is up-to-date on her mammograms she says she has not seen her primary care provider in a while and she thinks they just assigned her to a different primary care provider in her primary care office she needs to make an appointment. She says she is up-to-date on her mammograms. She is on Seasonique control pills and likes them and is very much interested in staying on them. Previous discussions have taken place about her elevated blood pressures and my recommendation that we plan on having a Mirena IUD inserted. Because she has had a vasovagal response in the past to getting a Pap smear and she has had a previous and her cervix was tightly closed and indeed difficult to visualize as it is anterior, plan was made to have her stop the active pills in order to plan for the period, to come to allow for insertion of the Mirena IU S ON a day the it would be possible to do, for instance when the office is open. She voiced that she would not want to have a Mirena inserted before the weekend. --but that really.... the more she has thought about it, she does not want a Mirena at all because she does not really want to have anything put inside her.. Discussed at some length the concerns about obesity and the metabolic changes that lead to worsening health conditions over time including elevated blood pressures etc.. Discussed also that it has been awhile since she has been seen by her primary care provider and should have fasting blood work done.. Additionally discussed that the risks with elevated blood pressure and control pills and they are serious and that if her blood pressure is elevated at the end of the visit I will not be able to continue the control pills. Most of this visit was spent discussing her elevated blood pressures and her weight issues. She says she eats really healthy and needs a very low carb low sugar diet but the weight just does not but sometimes it goes up and sometimes it goes down but it generally stays about the same. She has read a lot about the different weight loss medications and they scared her and she is also not interested in any of the weight loss surgeries. At the end of the visit patient's blood pressure was repeated and it was 136/82. 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 While she was waiting for the repeat blood pressure she made an appointment request for her primary care provider.. I will renew her control pills in anticipation that she will have made great success with some life changes in this coming year. If she does have any elevated blood pressures, we would need to change the method of control as we have discussed at length. Anticipating that she will be successful this time, we will see her next year. As part of this discussion many issues were addressed including alternative options available with weight loss medications surgery nutrition or administrative personal assistant coaching etc. I recommend she continue this discussion with her primary care provider. [facility] Medical History Low back pain Single delivery by H/O gastroesophageal reflux (GERD) Depression Anxiety Surgical History [place] teeth extracted History of carpal tunnel surgery Hx of section Family History Father Heart disease Mother Heart disease Social History Alcohol intake: current Alcohol intake frequency: holidays/special occasions only Patient Tobacco Use Status: Former Tobacco user Female Reproductive History Menstrual Age of Menarche: 14 Duration of menses: 3-5 days Date of last menstrual period: 06/25/24 control method: pills Total pregnancies: 2 Full term: 1 Ab spontaneous: 1 Date of last pap smear: 04/07/23 (negative hpv, negative pap smear) History of abnormal pap smear: Yes (2015 +HPV, 2020 ASCUS) Date of Mammogram: 05/13/24 (bi rad 1) Physical Exam Vital Signs: Last Vital Signs BP 138/94 H 07/12/24 14:36 BMI result Body Mass Index 42.0 Const General: healthy appearing, comfortable, no acute distress, well developed and alert Nutritional Appearance: average body habitus Orientation/consciousness: patient oriented x3 Limitations: no limitations HEENT Head: Yes normocephalic Neck Neck: Yes normal visual inspection Chest Chest palpation & inspection: normal inspection of the chest Breast/axilla inspection: normal inspection of the breasts and normal inspection of the axillae Breast/axilla palpation: normal palpation of the breasts and normal palpation of the axillae Resp Effort & Inspection: normal respiratory effort GI Inspection: Yes normal to inspection, No Abdominal wall edema and No distended Palpation (GI): Soft to palpation and nontender Other: External exam within normal limits pink healthy perineum and mucosa cervix nulliparous pink smooth healthy only briefly seen as it is very anterior in vagina and long large Graves speculum necessary adipose limiting visualization cervix nontender adnexa nontender uterus nontender good tone with Kegel. General: Yes bladder normal to palpation External Female Exam: normal external appearance and normal appearance of the urethra Speculum Exam - Vagina: normal appearance of the vagina, normal palpation and normal vaginal discharge Speculum Exam - Cervix: normal appearance of the cervix, normal palpation and nontender Bimanual exam- vagina & uterus: normal bimanual exam, normal palpation, uterine size normal, bladder normal to palpation, consistency normal, normal palpation, uterine mobility normal, uterine shape normal, No Cervical tenderness present, non-tender and no cervical motion tenderness Bimanual Exam- Adnexa, other: normal adnexae, no masses, normal and No adnexal tenderness Neuro General: patient oriented x3 Results Reviewed Results Reviewed: Paps reviewed. REPEAT BLOOD PRESSURE TODAY 136/82. Assessment & Plan Assessment & Plan (1) Well woman exam with routine gynecological exam: Code(s): Z01.419 - Encounter for gynecological examination (general) (routine) without abnormal findings Category: Medical (2) Surveillance for control, oral contraceptives: Code(s): Z30.41 - Encounter for surveillance of contraceptive pills Category: Medical (3) Hx of abnormal cervical Pap smear: Comment: HX OF POS HPV IN PAST,04/01/21 pap= ascus, neg hpv.- asccp recs repeat in 3 yrs..----- PER DISCUSSION W PT REPE.AT PAP W HPV 04/21.- pap repeated 04/05/22= negative with negative HPV. During speculum exam cervix bled from within os briskly before touched with Q-tip or anything Pap repeated 04/07/2023.= Negative w negative HPV. Code(s): Z87.42 - Personal history of other diseases of the female genital tract Category: Medical (4) Elevated blood pressure reading: Comment: REPEAT BLOOD PRESSURE TODAY 07/12/24- DURING THE VISIT, 136/82. PLAN MADE WITH THE PATIENT THAT SHE IS GOING TO BE SPEAKING WITH HER PRIMARY CARE PROVIDER AND RE DOUBLING EFFORTS TO LOSE WEIGHT IN HER OVER TO MAINTAIN HEALTHY BLOOD PRES SURE READINGS....(IF FUTURE BLOOD PRESSURE ELEVATED, WILL NEED TO REVISIT CONTROL AND PLAN FOR OTHER METHOD... 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 She says she is up-to-date on her mammograms she says she has not seen her primary care provider in a while and she thinks they just assigned her to a different primary care provider in her primary care office she needs to make an appointment. She says she is up-to-date on her mammograms. She is on Seasonique control pills and likes them and is very much interested in staying on them. Previous discussions have taken place about her elevated blood pressures and my recommendation that we plan on having a Mirena IUD inserted. Because she has had a vasovagal response in the past to getting a Pap smear and she has had a previous and her cervix was tightly closed and indeed difficult to visualize as it is anterior, plan was made to have her stop the active pills in order to plan for the period, to come to allow for insertion of the Mirena IU S ON a day the it would be possible to do, for instance when the office is open. She voiced that she would not want to have a Mirena inserted before the weekend. --but that really.... the more she has thought about it, she does not want a Mirena at all because she does not really want to have anything put inside her.. Discussed at some length the concerns about obesity and the metabolic changes that lead to worsening health conditions over time including elevated blood pressures etc.. Discussed also that it has been awhile since she has been seen by her primary care provider and should have fasting blood work done.. Additionally discussed that the risks with elevated blood pressure and control pills and they are serious and that if her blood pressure is elevated at the end of the visit I will not be able to continue the control pills. Most of this visit was spent discussing her elevated blood pressures and her weight issues. She says she eats really healthy and needs a very low carb low sugar diet but the weight just does not but sometimes it goes up and sometimes it goes down but it generally stays about the same. She has read a lot about the different weight loss medications and they scared her and she is also not interested in any of the weight loss surgeries. At the end of the visit patient's blood pressure was repeated and it was 136/82. 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 While she was waiting for the repeat blood pressure she made an appointment request for her primary care provider.. I will renew her control pills in anticipation that she will have made great success with some life changes in this coming year. If she does have any elevated blood pressures, we would need to change the method of control as we have discussed at length. Anticipating that she will be successful this time, we will see her next year. As part of this discussion many issues were addressed including alternative options available with weight loss medications surgery nutrition or administrative personal assistant coaching etc. I recommend she continue this discussion with her primary care provider. Orders: Orders CT NG by PCR 07/12/24 Z01.419 - Encounter for gynecological examination (general) (routine) without abnormal findings Bacterial Vaginosis Panel 07/12/24 Z01.419 - Encounter for gynecological examination (general) (routine) without abnormal findings Medications: Changed From L norgest/e.estradiol-e.estrad 0.15 mg-30 mcg (84)/10 mcg (7) (Simpesse) needs to bee seen in office. 1 tab PO DAILY 91 tabs 0RF To L norgest/e.estradiol-e.estrad 0.15 mg-30 mcg (84)/10 mcg (7) (Simpesse) RTC 1 year for blood pressure check... 1 tab PO DAILY 91 tabs 3RF Coding Level of Care Code Est Pt Prev Care 40-64y(53775) Diagnoses Well woman exam with routine gynecological exam Z01.419 Surveillance for control, oral contraceptives Z30.41 Hx of abnormal cervical Pap smear Z87.42 Elevated blood pressure reading R03.0 Obesity, morbid, BMI 40.0-49.9 E66.01
[2024-07-12 14:36] VITALS: BP 136/82; BMI 42.0
== END 2024-07-12 16:18 | disposition home or self-care (01) ==
LOC: HO.HWS 14:05
PROVIDERS: PCP Nurse Practitioner Family; Visit Provider Advanced Practice Midwife
DX: Z01.419 Encounter for gynecological examination (general) (routine) without abnormal findings (principal); R03.0 Elevated blood-pressure reading, without diagnosis of hypertension; Z87.42 Personal history of other diseases of the female genital tract; E66.01 Morbid (severe) obesity due to excess calories
CPT/HCPCS: 99396; 99459

== ENCOUNTER 2024-07-12 14:05 | Outpatient (REF) | payer OTHER, SELFPAY ==
[2024-07-13 06:15] LABS: CT PCR NOT DETECTED (Not Detect.); NG PCR NOT DETECTED (Not Detect.)
[2024-07-13 08:40] LABS: Bacterial Vaginosis PCR NEGATIVE (Negative); Candida Group PCR NOT DETECTED (Not Detect); Candida glab krusei PCR NOT DETECTED (Not Detect); Trichomonas vaginalis PCR NOT DETECTED (Not Detect)
== END 2024-07-12 14:06 | disposition home or self-care (01) ==
LOC: HO.LNP 14:05
PROVIDERS: PCP Nurse Practitioner Family; Visit Provider Advanced Practice Midwife
DX: Z01.419 Encounter for gynecological examination (general) (routine) without abnormal findings (principal); N89.8 Other specified noninflammatory disorders of vagina; Z87.42 Personal history of other diseases of the female genital tract; Z79.3 Long term (current) use of hormonal contraceptives
CPT/HCPCS: 81515; 87491; 87591

== ENCOUNTER 2024-09-13 11:59 | Outpatient (REF) | payer OTHER, SELFPAY ==
--- NOTE | ~2024-09-13 | XR_ITS ---
EXAMINATION: XR FOOT, RIGHT CLINICAL INFORMATION: M79.671 - Pain in right foot COMPARISON: None available. TECHNIQUE: AP, lateral, and oblique views of the right foot. FINDINGS: No fracture, dislocation, or suspicious bone lesion. Normal bone mineralization. Normal alignment. Joint spaces are preserved. No significant arthropathy. There is a tiny plantar calcaneal spur. Soft tissues appear normal. XR/XR foot RT min 3V IMPRESSION: No acute bony abnormalities of the right foot. Electronically signed by: To Montenegro MD 09/13/2024 03:45 PM EDT
== END 2024-09-13 12:00 | disposition home or self-care (01) ==
LOC: HO.HMGCX 11:59
PROVIDERS: PCP Family Medicine; Visit Provider Physician Assistant
DX: M79.671 Pain in right foot (principal)
CPT/HCPCS: 73630

== ENCOUNTER 2024-09-13 11:59 | Outpatient (AMB) | payer OTHER, SELFPAY ==
--- OUTSIDE RECORDS SUMMARY | 2024-09-13 12:01 | XMS_ITS | Encounter Summary ---
Author Organization [facility] Address [address] [place] [address] Care Team Providers Care Chorus Master Name Role Phone Justin Londono MD Primary Care Provider [phone] Community, Pcp Primary Care Provider Unavailabl e Encounter Details Date Type Department Care Team Description 04/26/2016 Zika Virus Medical Records [address] [place] [id number] Abstract, Provider Social History Tobacco Use Types Packs/Day Years Used Date Smoking Tobacco: Former Cigarettes 0 05/01/1992 - 08/29/2009 Smokeless Tobacco: Never Comments:social smoker, star diane @ age 13 ,smoking about 2 packs a week Alcohol Use Standard Drinks/Week Comments No 0 (1 standard drink = 0.6 oz pure alcohol) drank alcohol-wine on [place] where they concieved Sex Assigned at Date Recorded Not on file documented as of this encounter Plan of Treatment Not on file documented as of this encounter Visit Diagnoses Not on filedocumented in this encounter Care Teams Chorus Master Relationship Specialty Start Date End Date Justin Londono MD [address] [place] [address] [id number] PCP - General Internal Medicine 01/01/15 03/19/21 [facility], Pcp [address] [place] [address] PCP - General Internal Medicine 03/20/21 documented as of this encounter
--- OUTSIDE RECORDS SUMMARY | 2024-09-13 12:01 | XMS_ITS | Encounter Summary ---
Author Organization [facility] Address [address] [place] [address] Care Team Providers Care Flat Folding Machine Operator Name Role Phone Justin Londono MD Primary Care Provider Count Includes [facility], Pcp Primary Care Provider Unavailabl e Encounter Details Date Type Department Care Team Description 04/21/2016 Pt. Non Urgent Medical Question OBGYN - [place] [address] [place], [place] [phone] Machelle Thurman CNM [address] [place], [place] [phone] Social History Tobacco Use Types Packs/Day Years [...] on file documented as of this encounter Progress Notes * TIFFANY Silveira, RN - 04/22/2016 4:54 PM ESTFrom: Nika Arce To: Machelle Thurman CNM Sent: 04/21/2016 2:09 PM EST Subject: Missing info from today's appointment Nicolás, I had my first appt with Alma today to go over my medical history etc. and I forgot to mention acouple things... my mother has spinal stenosis and scoliosis (not osteoporosis), and my paternal grandmother had a stillborn baby. Nika Gonzáles documented in this encounter Plan of Treatment Not on file documented as of this encounter Visit Diagnoses Not on filedocumented in this encounter Care Teams Flat Folding Machine Operator Relationship Specialty Start Date End Date Justin Londono MD [address] [place] [address] PCP - General Internal Medicine 01/01/15 03/19/[address] [address] PCP - General Internal Medicine 03/20/21 documented as of this encounter
--- OUTSIDE RECORDS SUMMARY | 2024-09-13 12:01 | XMS_ITS | Encounter Summary ---
Author Organization [facility] Address [address] [place] [address] Care Team Providers Care Documentation Designer Name Role Phone Justin Londono MD Primary Care Provider [phone] [facility], Pcp Primary Care Provider Unavailabl e Reason for Visit * Reason Onset Date Comments Medication 03/28/2016 Encounter Details Date Type Department Care Team Description 03/28/2016 Pt. Non Urgent Medical Question Adult Medicine [address] [phone] Justin Londono MD [address] [place] [address] [phone] Social History Tobacco Use Types Packs/Day Years Used Date Smoking Tobacco: Former Cigarettes 0 05/01/1992 - 08/29/2009 Smokeless Tobacco: Never Comments:social smoker, kristofer contreras @ age 13 ,smoking about 2 packs a week Alcohol Use Standard Drinks/Week Comments No 0 (1 standard drink = 0.6 oz pur e alcohol) Sex Assigned at Date Recorded Not on file documented as of this encounter Progress Notes * Emmanuelle ArguelloPSeunNSeun - 03/28/2016 3:35 PM ESTFrom: Nika Sheets To: Justin Londono MD Sent: 03/28/2016 12:23 PM EST Subject: Zoloft Nicolás, I just wanted to notify you that I stopped taking Zoloft because I am and I would prefer to not put any medications in my body unless absolutely necessary. Should anything change or if I feel the need to go back on Zoloft for anxiety, I will call the office. ThanksNika documented in this encounter Plan of Treatment Not on file documented as of this encounter Visit Diagnoses Not on filedocumented in this encounter Care Teams Documentation Designer Relationship Specialty Start Date End Date Justin Londono MD [address] [place] [address] PCP - General Internal Medicine 01/01/15 03/19/21 [facility], [address] [address] PCP - General Internal Medicine 03/20/21 documented as of this encounter
--- OUTSIDE RECORDS SUMMARY | 2024-09-13 12:01 | XMS_ITS | Encounter Summary ---
Author Organization [facility] Address [address] [place] [address] Care Team Providers Care Psychologist Experimental Name Role Phone More Horne MD Primary Care Provider [phone] Ignacio Daniel MD Primary Care Provider Leo Anderson MD Primary Care Provider Unavail able Justin Londono MD Primary Care Provider [facility], [facility] Primary Care Provider Unavailabl e Encounter Details Date Type Department Care Team Description 08/04/2010 Eye Refractory Products Supervisor Report Medical Records [address] [place] [id number] Tyra Arguelles Social History Tobacco Use Types Packs/Day Years Used Date Smoking Tobacco: Former Cigarettes Comments:social smoker, star diane @ age 13 ,smoking about 2 packs a week Alcohol Use Standard Drinks/Week Comments No 0 (1 standard drink = 0.6 oz pur e alcohol) Sex Assigned at Date Recorded Not on file documented as of this encounter Plan of Treatment Not on file documented as of this encounter Visit Diagnoses Not on filedocumented in this encounter Care Teams Psychologist Experimental Relationship Specialty Start Date End Date More Horne MD [address] [place] [address] PCP - General 08/21/1998 01/20/14 Ignacio Daniel MD [address] [place] [address] PCP - General Internal Medicine 01/21/14 03/18/14 Leo Anderson MD [address] [place] [address] PCP - General Internal Medicine 03/19/14 12/31/14 Justin Londono MD [address] [place] [address] PCP - General Internal Medicine 01/01/15 03/19/21 [facility], [address] [address] PCP - General Internal Medicine 03/20/21 documented as of this encounter
--- OUTSIDE RECORDS SUMMARY | 2024-09-13 12:01 | XMS_ITS | Encounter Summary ---
Author Organization [facility] Address [address] [place] [address] Care Team Providers Care Time Recorder Name Role Phone Justin Londono MD Primary Care Provider [facility], Pcp Primary Care Provider Unavailabl e Reason for Visit * Reason Onset Date Comments 06/22/2016 Transfer Records 06/22/2016 Encounter Details Date Type Department Care Team Description 06/22/2016 Telephone OBGYN - [place] [address] [place], [place] [phone] Machelle Thurman, KARELY [address] [place], [place] [phone] ; Transfer Records Social History Tobacco Use Types Packs/Day Years [...] on file documented as of this encounter Miscellaneous Notes * Telephone Encounter - Peyton Elizabeth - 06/22/2016 3:39 PM EST Noted. 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
--- OUTSIDE RECORDS SUMMARY | 2024-09-13 12:01 | XMS_ITS | Encounter Summary ---
Author Organization [facility] Address [address] [place] [address] Care Team Providers Care Sales Manager Prearranged Funerals Name Role Phone Justin Londono MD Primary Care Provider [facility], Pcp Primary Care Provider Unavailabl e Reason for Visit * Reason Comments E-prescribe Rx Request Encounter Details Date Type Department Care Team Description 07/04/2016 Refill OBGYN - [place] [address] [place], [place] [phone] Machelle Thurman CNM [address] [place], [place] [phone] E-prescribe Rx Request Social History Tobacco Use Types Packs/Day Years [...] encounter Miscellaneous Notes * Telephone Encounter - Machelle Thurman CNM - 07/04/2016 1:50 PM EST Patient transferred care to [facility] * Telephone Encounter - Jazlyn Kelley - 07/04/2016 1:36 PM EST WHEN WAS THE PATIENTS LAST ANNUAL CONSUMER MARKETING ANALYST EXAM? Was seen for ob in June Does patient have an upcoming appointment? No (THE MEDICATION REQUESTED IS ON THE MED LIST ABOVE) Did you check the Pharmacy information above?: NO Indicate how soon the patient needs the script: BY THE END OF THE DAY Patient would like script to be: E-PRESCRIBED/FAXED TO PHARMACY Is the doctor here today?: YES Can the message wait until the doctor returns?: YES Has the patient been told that the prescription will not be filled until the end of the day? NO Payor: [facility] [place]/[employer] / Plan: [employer] $[address] [place] [id number] / Product Type: [employer] [id number] documented in this encounter Plan of Treatment Not on file documented as of this encounter Visit Diagnoses Not on filedocumented in this encounter Care Teams Sales Manager Prearranged Funerals Relationship Specialty Start Date End Date Justin Londono MD [address] [place] [address] PCP - General Internal Medicine 01/01/15 03/19/[address] [address] PCP - General Internal Medicine 03/20/21 documented as of this encounter
--- OUTSIDE RECORDS SUMMARY | 2024-09-13 12:01 | XMS_ITS | Encounter Summary ---
Author Organization [facility] Address [address] [place] [address] Care Team Providers Care Flat Optical Element Maker Name Role Phone More Horne MD Primary Care Provider [phone] Ignacio Daniel MD Primary Care Provider [phone] Leo Anderson MD Primary Care Provider Unavail able Justin Londono MD Primary Care Provider [facility], [facility] Primary Care Provider Unavailabl e Encounter Details Date Type Department Care Team Description 08/30/2013 Mixer Wet Pour Report Medical Records [address] [place] [address] Jasen Melvin MD Social History Tobacco Use Types Packs/Day Years Used Date Smoking Tobacco: Former Cigarettes Q uit: 08/29/2009 Smokeless Tobacco: Never Comments:social smoker, star [...] filedocumented in this encounter Care Teams Flat Optical Element Maker Relationship Specialty Start Date End Date More Horne MD [address] [place] [address] PCP - General 08/21/1998 01/20/14 Ignacio Daniel MD [address] [place] [address] PCP - General Internal Medicine 01/21/14 03/18/14 Leo Anderson MD [address] [place] [address] PCP - General Internal Medicine 03/19/14 12/31/14 Justin Londono MD [address] [place] [address] PCP - General Internal Medicine 01/01/15 03/19/21 [facility], [place] [address] PCP - General Internal Medicine 03/20/21 documented as of this encounter
--- OUTSIDE RECORDS SUMMARY | 2024-09-13 12:01 | XMS_ITS | Encounter Summary ---
Author Organization [facility] Address [address] [place] [address] Care Team Providers Care Primary Counselor Name Role Phone Justin Londono MD Primary Care Provider [phone] [facility], Pcp Primary Care Provider Unavailabl e Reason for Visit * Reason Comments E-prescribe Rx Request Encounter Details Date Type Department Care Team Description 06/11/2016 Refill OBGYN - [place] [address] [place], [place] [phone] Machelle Thuramn, [facility] [address] [place], [place] [phone] E-prescribe Rx Request Social History Tobacco Use [...] encounter Miscellaneous Notes * Telephone Encounter - Jeffery Browning - 06/13/2016 9:09 AM EST WHEN WAS THE PATIENTS LAST ANNUAL BAGGAGE AND MAIL AGENT EXAM? 06/09/15 Does patient have an upcoming appointment? Yes 07/01/16 (THE MEDICATION REQUESTED IS ON THE MED LIST ABOVE) Did you check the Pharmacy information above?: YES Indicate how soon the patient needs the script: BY THE END OF THE DAY Patient would like script to be: E-PRESCRIBED/FAXED TO PHARMACY Is the doctor here today?: NO Can the message wait until the doctor returns?: NO Has the patient been told that the prescription will not be filled until the end of the day? NO Payor: LORNA/Asantae FFS / Plan: Incisive SurgicalO $20 [place] [id number] / Product Type: Incisive SurgicalO [id number] documented in this encounter Plan of Treatment Not on file documented as of this encounter Visit Diagnoses Not on filedocumented in this encounter Care Teams Primary Counselor Relationship Specialty Start Date End Date Justin Londono MD [address] [place] [address] PCP - General Internal Medicine 01/01/15 03/19/21 [facility] [place] [address] [place] [address] PCP - General Internal Medicine 03/20/21 documented as of this encounter
--- OUTSIDE RECORDS SUMMARY | 2024-09-13 12:01 | XMS_ITS | Encounter Summary ---
Author Organization [facility] Address [address] [place] [address] Care Team Providers Care Windows Mobile Developer Name Role Phone Justin Londono MD Primary Care Provider [phone] [facility], Pcp Primary Care Provider Unavailabl e Encounter Details Date Type Department Care Team Description 11/30/2015 Field Captain Report Medical Records [address] [place] [address] Savannah Cunningham MD Social History Tobacco Use Types Packs/Day [...] on filedocumented in this encounter Care Teams Windows Mobile Developer Relationship Specialty Start Date End Date Justin Londono MD [address] [place] [address] [phone] PCP - General Internal Medicine 01/01/15 03/19/21 [facility], Pcp [address] [place] [address] PCP - General Internal Medicine 03/20/21 documented as of this encounter
--- OUTSIDE RECORDS SUMMARY | 2024-09-13 12:01 | XMS_ITS | Encounter Summary ---
Author Organization [employer] [facility] Address [address] [place] [address] Care Team Providers Care Hydrologic Engineer Name Role Phone Justin Londono MD Primary Care Provider [facility], Pcp Primary Care Provider Unavailabl e Encounter Details Date Type Department Care Team Description 02/20/2016 Release of Information Medical Records [address] [place] [address] Abstract, Provider Social History Tobacco Use Types [...] on filedocumented in this encounter Care Teams Hydrologic Engineer Relationship Specialty Start Date End Date Justin Londono MD [address] [place] [address] PCP - General Internal Medicine 01/01/15 03/19/21 [facility], Pcp [address] [place] [address] PCP - General Internal Medicine 03/20/21 documented as of this encounter
--- OUTSIDE RECORDS SUMMARY | 2024-09-13 12:01 | XMS_ITS | Encounter Summary ---
Author Organization [facility] Address [address] [place] [address] Care Team Providers Care Client Manager Large Law Name Role Phone Justin Londono MD Primary Care Provider [facility], Pcp Primary Care Provider Unavailabl e Encounter Details Date Type Department Care Team Description 05/13/2016 [facility] Medical Records [address] [place] [address] Abstract, Provider Social History Tobacco Use Types [...] on filedocumented in this encounter Care Teams Client Manager Large Law Relationship Specialty Start Date End Date Justin Londono MD [address] [place] [address] [phone] PCP - General Internal Medicine 01/01/15 03/19/21 [facility], Pcp [address] [place] [address] PCP - General Internal Medicine 03/20/21 documented as of this encounter
--- OUTSIDE RECORDS SUMMARY | 2024-09-13 12:01 | XMS_ITS | Encounter Summary ---
Author Organization [facility] Address [address] [place] [address] Care Team Providers Care Agronomy Manager Name Role Phone More Horne MD Primary Care Provider [phone] Ignacio Daniel MD Primary Care Provider Leo Anderson MD Primary Care Provider Unavail able Justin Londono MD Primary Care Provider [facility], [facility] Primary Care Provider Unavailabl e Encounter Details Date Type Department Care Team Description 02/04/2013 Kapok Machine Operator Report Medical Records [address] [place] [address] Savannah Cunningham MD Social History Tobacco Use [...] on filedocumented in this encounter Care Teams Agronomy Manager Relationship Specialty Start Date End Date More Horne MD [address] [place] [address] PCP - General 08/21/1998 01/20/14 Ignacio Daniel MD [address] [place] [address] PCP - General Internal Medicine 01/21/14 03/18/14 Leo Anderson MD [address] [place] [address] PCP - General Internal Medicine 03/19/14 12/31/14 Justin Londono MD [address] [place] [address] PCP - General Internal Medicine 01/01/15 03/19/21 [facility], [place] [address] PCP - General Internal Medicine 03/20/21 documented as of this encounter
--- OUTSIDE RECORDS SUMMARY | 2024-09-13 12:01 | XMS_ITS | Encounter Summary ---
Author Organization [facility] Address [address] [place] [address] Care Team Providers Care Senior Vice President And Chief Information Officer Name Role Phone Justin Londono MD Primary Care Provider [facility] [place] [facility], Pcp Primary Care Provider Unavailabl e Encounter Details Date Type Department Care Team Description 06/03/2016 Pt. Non Urgent Medical Question OBGYN - [place] [address] [place], [place] [phone] Machelle Thurman CNM [address] [place], [place] [phone] Social History Tobacco Use Types Packs/Day Years [...] as of this encounter Progress Notes * Peyton Elizabeth - 06/03/2016 1:29 PM ESTFrom: Nika Arce To: Machelle Thurman CNM Sent: 06/03/2016 12:47 PM EST Subject: Question about after care summary Nasirlo, I was seen yesterday and on my after care summary it said something about strep. Can you tell me why that was on there? Nika Gonzáles documented in this encounter Plan of Treatment Not on file documented as of this encounter Visit Diagnoses Not on filedocumented in this encounter Care Teams Senior Vice President And Chief Information Officer Relationship Specialty Start Date End Date Justin Londono MD [address] [place] [address] PCP - General Internal Medicine 01/01/15 03/19/21 [facility], [address] [address] PCP - General Internal Medicine 03/20/21 documented as of this encounter
--- OUTSIDE RECORDS SUMMARY | 2024-09-13 12:01 | XMS_ITS | Encounter Summary ---
Author Organization [facility] Address [address] [place] [address] Care Team Providers Care Permastone Installer Name Role Phone Justin Londono MD Primary Care Provider [facility], Pcp Primary Care Provider Unavailabl e Reason for Visit * Reason Onset Date Comments Letter 02/05/2016 Encounter Details Date Type Department Care Team Description 02/05/2016 Telephone Adult Medicine [address] [phone] Justin Londono MD [address] [place] [address] [phone] Letter Social History Tobacco Use Types Packs/Day Years [...] encounter Miscellaneous Notes * Telephone Encounter - Justin Londono MD - 02/08/2016 8:32 AM EDT Letter printed * Telephone Encounter - Kellie Kumar - 02/05/2016 4:35 PM EDT Letter requested for: Travel Reason for letter: Patient is traveling to [place] on 02/11/16 and needs a letter stating the medication she is taking so that she can travel with them. Please help. Specific notations needed in body of letter: Medication patient is on. Date needed for completion: MARK When completed: Will pick remover-call when completed: (home) documented in this encounter Plan of Treatment Not on file documented as of this encounter Visit Diagnoses Not on filedocumented in this encounter Care Teams Permastone Installer Relationship Specialty Start Date End Date Justin Londono MD [address] [place] [address] PCP - General Internal Medicine 01/01/15 03/19/21 [facility], [address] [address] PCP - General Internal Medicine 03/20/21 documented as of this encounter
--- OUTSIDE RECORDS SUMMARY | 2024-09-13 12:01 | XMS_ITS | Encounter Summary ---
Author Organization [facility] Address [address] [place] [address] Care Team Providers Care Production Engineer Track Name Role Phone More Horne MD Primary Care Provider [phone] Ignacio Daniel MD Primary Care Provider [phone] Leo Anderson MD Primary Care Provider Unavail able Justin Londono MD Primary Care Provider [phone] [facility], [facility] Primary Care Provider Unavailabl e Encounter Details Date Type Department Care Team Description 08/20/2013 Hospital Medical Records [address] [place] [address] Jasen Melvin MD Social History Tobacco Use Types Packs/Day Years Used Date Smoking Tobacco: Former Cigarettes 0.5 0 05/01/1992 - 08/29/2009 Smokeless Tobacco: Former Comments:social smoker, star diane @ age 13 ,smoking about 2 packs a week Alcohol Use Standard Drinks/Week Comments No 0 (1 standard drink = 0.6 oz pur e alcohol) Sex Assigned at Date Recorded Not on file documented as of this encounter Plan of Treatment Not on file documented as of this encounter Visit Diagnoses Not on filedocumented in this encounter Care Teams Production Engineer Track Relationship Specialty Start Date End Date More Horne MD [address] [place] [address] PCP - General 08/21/1998 01/20/14 Ignacio Daniel MD [address] [place] [address] PCP - General Internal Medicine 01/21/14 03/18/14 Leo Anderson MD [address] [place] [address] PCP - General Internal Medicine 03/19/14 12/31/14 Justin Londono MD [address] [place] [address] PCP - General Internal Medicine 01/01/15 03/19/21 [facility], [place] [address] PCP - General Internal Medicine 03/20/21 documented as of this encounter
--- OUTSIDE RECORDS SUMMARY | 2024-09-13 12:01 | XMS_ITS | Encounter Summary ---
Author Organization [facility] Address [address] [place] [address] Care Team Providers Care Supervisor Paper Coating Name Role Phone More Horne MD Primary Care Provider [phone] Ignacio Daniel MD Primary Care Provider [phone] Leo Anderson MD Primary Care Provider Unavail able Justin Londono MD Primary Care Provider [facility] Primary Care Provider Unavailabl e Encounter Details Date Type Department Care Team Description 10/16/2013 System Safety Manager Report Medical Records [address] [place] [address] Rodriguez Bloom Social History Tobacco Use Types Packs/Day Years [...] on filedocumented in this encounter Care Teams Supervisor Paper Coating Relationship Specialty Start Date End Date More Horne MD [address] [place] [address] PCP - General 08/21/1998 01/20/14 Ignacio Daniel MD [address] [place] [address] [phone] PCP - General Internal Medicine 01/21/14 03/18/14 Leo Anderson MD [address] [place] [address] PCP - General Internal Medicine 03/19/14 12/31/14 Justin Londono MD [address] [place], [place] [phone] PCP - General Internal Medicine 01/01/15 03/19/21 [facility] [place], [place] [address] PCP - General Internal Medicine 03/20/21 documented as of this encounter
--- OUTSIDE RECORDS SUMMARY | 2024-09-13 12:02 | XMS_ITS | Encounter Summary ---
Author Organization [facility] Address [address] [place] [address] Care Team Providers Care Buncher Hand Name Role Phone Justin Londono MD Primary Care Provider [phone] [facility], Pcp Primary Care Provider Unavailabl e Encounter Details Date Type Department Care Team Description 06/02/2015 Wire Basket Maker Report Medical Records [address] [place] [address] Savannah Cunningham MD Social History Tobacco Use [...] on filedocumented in this encounter Care Teams Buncher Hand Relationship Specialty Start Date End Date Justin Londono MD [address] [place], [place] [phone] PCP - General Internal Medicine 01/01/15 03/19/21 [facility], Pcp [address] [place] [address] PCP - General Internal Medicine 03/20/21 documented as of this encounter
--- OUTSIDE RECORDS SUMMARY | 2024-09-13 12:02 | XMS_ITS | Encounter Summary ---
Author Organization [facility] Address [address] [place] [address] Care Team Providers Care Staff Services Manager Name Role Phone Justin Londono MD Primary Care Provider [facility], Pcp Primary Care Provider Unavailabl e Reason for Visit * Reason Onset Date Comments refill request 05/28/2015 IVETH 0.35 MG t ablet Encounter Details Date Type Department Care Team Description 05/28/2015 Refill OBGYN - [place] [address] [place], [place] [phone] Machelle Thurman, KARELY [address] [place], [place] [phone] refill request (IVETH 0.35 MG tablet) Social History Tobacco Use Types Packs/Day Years [...] encounter Miscellaneous Notes * Telephone Encounter - Kadie Olivares R.N. - 05/28/2015 4:23 PM EST Appt with Machelle 06/09/15. TODDW * Telephone Encounter - Nellie Raines 05/28/2015 1:51 PM EST WHEN WAS THE PATIENTS LAST ANNUAL LETTERER EXAM? 04/01/14 Does patient have an upcoming appointment? Yes 06/09/15 (THE MEDICATION REQUESTED IS ON THE MED [...] filled until the end of the day? YES Payor: YannaIL/SweetSlap FFS / Plan: Screenleap HOST $20 / Product Type: HMO [id number] documented in this encounter Plan of Treatment Not on file documented as of this encounter Visit Diagnoses Not on filedocumented in this encounter Care Teams Staff Services Manager Relationship Specialty Start Date End Date Justin Londono MD [address] [place] [address] PCP - General Internal Medicine 01/01/15 03/19/[address] [address] PCP - General Internal Medicine 03/20/21 documented as of this encounter
--- OUTSIDE RECORDS SUMMARY | 2024-09-13 12:02 | XMS_ITS | Encounter Summary ---
Author Organization [facility] Address [address] [place] [address] Care Team Providers Care Bench Lay Out Technician Name Role Phone Justin Londono MD Primary Care Provider [phone] [facility], Pcp Primary Care Provider Unavailabl e Encounter Details Date Type Department Care Team Description 07/08/2015 Stable Hand Report Medical Records [address] [place] [address] Savannah Cunningham MD Social History Tobacco Use [...] on filedocumented in this encounter Care Teams Bench Lay Out Technician Relationship Specialty Start Date End Date Justin Londono MD [address] [place], [place] [phone] PCP - General Internal Medicine 01/01/15 03/19/21 [facility], Pcp [address] [place] [address] PCP - General Internal Medicine 03/20/21 documented as of this encounter
--- OUTSIDE RECORDS SUMMARY | 2024-09-13 12:02 | XMS_ITS | Encounter Summary ---
Author Organization [facility] Address [address] [place] [address] Care Team Providers Care Parish Nurse Name Role Phone More Horne MD Primary Care Provider [phone] Ignacio Daniel MD Primary Care Provider Leo Anderson MD Primary Care Provider Unavail able Justin Londono MD Primary Care Provider [phone] [facility], [facility] Primary Care Provider Unavailabl e Encounter Details Date Type Department Care Team Description 09/30/2011 Quality Systems Engineer Report Medical Records [address] [place] [address] Mat Youngblood Social History Tobacco Use Types Packs/Day Years [...] on filedocumented in this encounter Care Teams Parish Nurse Relationship Specialty Start Date End Date More Horne MD [address] [place] [address] PCP - General 08/21/1998 01/20/14 Ignacio Daniel MD [address] [place] [address] [phone] PCP - General Internal Medicine 01/21/14 03/18/14 Leo Anderson MD [address] [place] [address] PCP - General Internal Medicine 03/19/14 12/31/14 Justin Londono MD [address] [place] [address] PCP - General Internal Medicine 01/01/15 03/19/21 [facility], [place] [address] PCP - General Internal Medicine 03/20/21 documented as of this encounter
--- OUTSIDE RECORDS SUMMARY | 2024-09-13 12:02 | XMS_ITS | Encounter Summary ---
Author Organization [facility] Address [address] [place] [address] Care Team Providers Care Rubble Placer Name Role Phone Justin Londono MD Primary Care Provider [phone] [facility], Pcp Primary Care Provider Unavailabl e Encounter Details Date Type Department Care Team Description 05/06/2015 Oil Well Perforator Operator Report Medical Records [address] [place] [address] Savannah Cunningham MD Social History Tobacco Use [...] on filedocumented in this encounter Care Teams Rubble Placer Relationship Specialty Start Date End Date Justin Londono MD [address] [place], [place] [phone] PCP - General Internal Medicine 01/01/15 03/19/21 [facility], Pcp [address] [place] [address] PCP - General Internal Medicine 03/20/21 documented as of this encounter
--- OUTSIDE RECORDS SUMMARY | 2024-09-13 12:02 | XMS_ITS | Encounter Summary ---
Author Organization [facility] Address [address] [place] [address] Care Team Providers Care Pig Breeder Name Role Phone More Horne MD Primary Care Provider [phone] Ignacio Daniel MD Primary Care Provider [phone] Leo Anderson MD Primary Care Provider Unavail able Justin Londono MD Primary Care Provider [facility], [facility] Primary Care Provider Unavailabl e Encounter Details Date Type Department Care Team Description 04/20/2011 Stone Lathe Operator Report Medical Records [address] [place] [address] Savannah Cunningham MD Social History Tobacco Use [...] on filedocumented in this encounter Care Teams Pig Breeder Relationship Specialty Start Date End Date More Horne MD [address] [place] [address] PCP - General 08/21/1998 01/20/14 Ignacio Daniel MD [address] [place] [address] PCP - General Internal Medicine 01/21/14 03/18/14 Leo Anderson MD [address] [place] [address] PCP - General Internal Medicine 03/19/14 12/31/14 Justin Londono MD [address] [place] [address] PCP - General Internal Medicine 01/01/15 03/19/21 [facility], [place] [address] PCP - General Internal Medicine 03/20/21 documented as of this encounter
--- OUTSIDE RECORDS SUMMARY | 2024-09-13 12:02 | XMS_ITS | Encounter Summary ---
Author Organization [facility] Address [address] [place] [address] Care Team Providers Care American Indian Policy Specialist Name Role Phone Justin Londono MD Primary Care Provider [phone] [facility], Pcp Primary Care Provider Unavailabl e Reason for Visit * Reason Onset Date Comments Faxed Refill 03/14/2019 Encounter Details Date Type Department Care Team Description 03/14/2019 Refill OBGYN - [place] [address] [place], [place] [phone] Machelle Thurman, KARELY [address] [place], [place] [phone] Faxed Refill Social History Tobacco Use Types Packs/Day Years Used Date Smoking Tobacco: Former Cigarettes 0.5 0 05/01/1992 - 08/29/2009 Smokeless Tobacco: Former Comments:social smoker, kristofer contreras @ age 13 ,smoking about 2 packs a week Alcohol Use Standard Drinks/Week Comments No 0 (1 standard drink = 0.6 oz pur e alcohol) Sex Assigned at Date Recorded Not on file documented as of this encounter Miscellaneous Notes * Telephone Encounter - Machelle Ignacio - 03/14/2019 10:10 AM EST WHEN WAS THE PATIENTS LAST ANNUAL SOFTWARE DESIGN ENGINEER EXAM? 06/09/15 Does patient have an upcoming appointment? No lmom (THE MEDICATION IS NOT ON THE MED LIST AND IS IDENTIFIED BELOW): Med name: LEVONO-E ESTRAD 0.15-0.03-0.01 Dosage: # of tablets: 91.0 and 4 refills Local pharmacy with request for Instructions: Did you check the pharmacy information above?: YES Indicate how soon the patient needs the script: MARK Patient would like script to be: E-PRESCRIBED/FAXED TO PHARMACY Is the doctor here today?: NO Can the message wait until the doctor returns?: NO Has the pateint been told the prescription will not be filled until the end of the day? NO Payor: WORKERS COMP / Plan: WORKERS COMPENSATION/[place] / Product Type: OTHER documented in this encounter Plan of Treatment Not on file documented as of this encounter Visit Diagnoses Not on filedocumented in this encounter Care Teams American Indian Policy Specialist Relationship Specialty Start Date End Date Justin Londono MD [address] [place] [address] PCP - General Internal Medicine 01/01/15 03/19/[address] [address] PCP - General Internal Medicine 03/20/21 documented as of this encounter
--- OUTSIDE RECORDS SUMMARY | 2024-09-13 12:02 | XMS_ITS | Encounter Summary ---
Author Organization [facility] Address [address] [place] [address] Care Team Providers Care Inside Sales Manager Name Role Phone Justin Londono MD Primary Care Provider [facility], Pcp Primary Care Provider Unavailabl e Encounter Details Date Type Department Care Team Description 06/05/2015 Release of Information Medical Records [address] [place] [address] Abstract, Provider Social History Tobacco Use Types [...] on filedocumented in this encounter Care Teams Inside Sales Manager Relationship Specialty Start Date End Date Justin Londono MD [address] [place] [address] PCP - General Internal Medicine 01/01/15 03/19/21 [facility], Pcp [address] [place] [address] PCP - General Internal Medicine 03/20/21 documented as of this encounter
--- OUTSIDE RECORDS SUMMARY | 2024-09-13 12:02 | XMS_ITS | Encounter Summary ---
Author Organization [facility] Address [address] [place] [address] Care Team Providers Care Distribution Clerk Name Role Phone Justin Londono MD Primary Care Provider [phone] [facility], Pcp Primary Care Provider Unavailabl e Reason for Referral * Non IVELISSE (Routine) - Authorized/Booked Specialty Diagnoses / Procedures Referred By Contkm t Referred To Contact Dermatology Diagnoses Dry skin Procedures REFERRAL TO DERMATOLOGY Justin Londono MD [address] [place] [phone] Mat Mathews MD [address] [place] [address] Referral ID Status Reason Start Date Expiration Date V isits Requested Visits Authorized [id number] Authorized/B ooked 05/21/2017 05/21/2018 12 12 Reason for Visit * Reason Onset Date Comments Tank Officer Feedback 05/19/2017 Natahlia cannon Encounter Details Date Type Department Care Team Description 05/19/2017 Telephone Adult Medicine [facility] [address] [place] [address] [phone] Justin Londono MD [address] [place] [address] [phone] Tank Officer Feedback (Nathalia cannon ) Social History Tobacco Use Types Packs/Day Years [...] encounter Miscellaneous Notes * Telephone Encounter - Yumi Mann - 05/19/2017 9:30 AM EST Please review this patients new referral request. The referral has been pended. Please complete thefollowing: If approved> sign order If denied>please give instructions and route to your practice nursing pool. Practice nurse should inform referrals and the patient if denied. Thank you, Yumi Senior Business Intelligence Analyst * Telephone Encounter - Lily Spears - 05/19/2017 9:24 AM EST Request for a referral to a [facility] Specialist for a patient with a [facility] PCP. If patient does NOT have a [facility] PCP they must obtain a referral from their PCP before being seen-do not submit request to Referrals department-contact patient. Josiah OTERO and Juan F OTERO should not see patients with community PCP's as they are not billed as specialists. Specialty patient is being referred to: derm Name of Specialist patient is seeing: Juan F Cannon Reason/diagnosis for visit: dry skin Date of appoinment: tbd If retro, date referral needs to start: Justin Londono Payor: WORKERS COMP / Plan: WORKERS COMPENSATION/[place] / Product Type: OTHER documented in this encounter Plan of Treatment Not on file documented as of this encounter Visit Diagnoses Diagnosis Dry skin- Primary Other symptoms involving skin and integumentary tissues documented in this encounter Care Teams Distribution Clerk Relationship Specialty Start Date End Date Justin Londono MD [address] [place] [address] PCP - General Internal Medicine 01/01/15 03/19/21 [facility], Pcp [address] [place] [phone] PCP - General Internal Medicine 03/20/21 documented as of this encounter
--- OUTSIDE RECORDS SUMMARY | 2024-09-13 12:02 | XMS_ITS | Encounter Summary ---
Author Organization [facility] Address [address] [place] [address] Care Team Providers Care Plant Utilities Engineer Name Role Phone More Horne MD Primary Care Provider [phone] Ignacio Daniel MD Primary Care Provider Leo Anderson MD Primary Care Provider Unavail able Justin Londono MD Primary Care Provider [facility], [facility] Primary Care Provider Unavailabl e Encounter Details Date Type Department Care Team Description 09/06/2011 Chisel Mortiser Operator Report Medical Records [address] [place] [phone] Rehab., [facility] Social History Tobacco Use Types Packs/Day Years [...] on filedocumented in this encounter Care Teams Plant Utilities Engineer Relationship Specialty Start Date End Date More Horne MD [address] [place] [address] PCP - General 08/21/1998 01/20/14 Ignacio Daniel MD [address] [place] [address] PCP - General Internal Medicine 01/21/14 03/18/14 Leo Anderson MD [address] [place] [address] PCP - General Internal Medicine 03/19/14 12/31/14 Justin Londono MD [address] [place] [address] PCP - General Internal Medicine 01/01/15 03/19/21 [facility], [place] [address] PCP - General Internal Medicine 03/20/21 documented as of this encounter
--- OUTSIDE RECORDS SUMMARY | 2024-09-13 12:02 | XMS_ITS | Encounter Summary ---
Author Organization [facility] Address [address] [place] [address] Care Team Providers Care Stranding Machine Operator Helper Name Role Phone Leo Anderson MD Primary Care Provider Unavail able Justin Londono MD Primary Care Provider [phone] [facility], Pcp Primary Care Provider Unavailabl e Encounter Details Date Type Department Care Team Description 10/20/2014 Pt. Non Urgent Medic al Question OBGYN - [place] [address] [place] [address] Delmy Gatica MD Social History Tobacco Use Types Packs/Day [...] as of this encounter Progress Notes * Butch Sweeney R.N. - 10/21/2014 12:38 PM EDTFrom: Nika Sheets To: Delmy Gatica MD Sent: 10/20/2014 5:45 PM EDT Subject: Breast change Hi, I recently noticed a change in my right breast and I'd like to make an appointment as soon as possible. I tried scheduling one through [facility] but none are available and I'm concerned. Thank you. documented in this encounter Plan of Treatment Not on file documented as of this encounter Visit Diagnoses Not on filedocumented in this encounter Care Teams Stranding Machine Operator Helper Relationship Specialty Start Date End Date Leo Anderson MD PCP - General Internal Medicine 03/19/14 12/31/14 Justin Londono MD [address] [place] [address] PCP - General Internal Medicine 01/01/15 03/19/[address] [address] PCP - General Internal Medicine 03/20/21 documented as of this encounter
--- OUTSIDE RECORDS SUMMARY | 2024-09-13 12:02 | XMS_ITS | Encounter Summary ---
Author Organization [facility] Address [address] [place] [address] Care Team Providers Care System Development Manager Name Role Phone Justin Londono MD Primary Care Provider [facility], Pcp Primary Care Provider Unavailabl e Encounter Details Date Type Department Care Team Description 02/26/2015 Neurology Manager Report Medical Records [address] [place] [address] Savannah Cunningham MD Social History Tobacco Use [...] on filedocumented in this encounter Care Teams System Development Manager Relationship Specialty Start Date End Date Justin Londono MD [address] [place], [place] [phone] PCP - General Internal Medicine 01/01/15 03/19/21 [facility], Pcp [address] [place] [address] PCP - General Internal Medicine 03/20/21 documented as of this encounter
--- OUTSIDE RECORDS SUMMARY | 2024-09-13 12:02 | XMS_ITS | Encounter Summary ---
Author Organization [facility] Address [address] [place] [address] Care Team Providers Care Job Site Superintendent Name Role Phone Justin Londono MD Primary Care Provider [phone] [facility], Pcp Primary Care Provider Unavailabl e Reason for Visit * Reason Comments E-prescribe Rx Request IVETH 0.35 MG ta blet Encounter Details Date Type Department Care Team Description 04/29/2015 Refill OBGYN - [place] [address] [place] [address] Delmy Gatica MD E-prescribe Rx Request (IVETH 0.35 MG tablet) Social History Tobacco [...] encounter Miscellaneous Notes * Telephone Encounter - Nitesh Graff CNM - 04/30/2015 2:56 PM EST Script for [employer] filled today by Tiffany Arrington CNM * Telephone Encounter - Estella Leahy - 04/30/2015 1:46 PM EST WHEN WAS THE PATIENTS LAST ANNUAL SUGAR CONTROLLER EXAM? Does patient have an upcoming appointment? (THE MEDICATION REQUESTED IS ON THE MED [...] the end of the day? YES Payor: [employer] FFS / Plan: [employer] HOST $10 / Product Type: HMO Jls-bod-Nsbtrza * Telephone Encounter - Fabiola Castillo - 04/30/2015 9:54 AM EST Last AG 04/01/14-En Scheduled 05/21/15-Machelle Thurman Her appt on 04/28/15 was canceled due to her menses documented in this encounter Plan of Treatment Not on file documented as of this encounter Visit Diagnoses Not on filedocumented in this encounter Care Teams Job Site Superintendent Relationship Specialty Start Date End Date Justin Londono MD [address] [place] [address] PCP - General Internal Medicine 01/01/15 03/19/21 [place] Gongora [address] [place] [address] PCP - General Internal Medicine 03/20/21 documented as of this encounter
--- OUTSIDE RECORDS SUMMARY | 2024-09-13 12:02 | XMS_ITS | Encounter Summary ---
Author Organization [facility] Address [address] [place] [address] Care Team Providers Care Debt Counselor Name Role Phone Justin Londono MD Primary Care Provider [facility], Pcp Primary Care Provider Unavailabl e Reason for Visit * Reason Comments E-prescribe Rx Request Encounter Details Date Type Department Care Team Description 03/29/2017 Refill Adult Medicine [facility] [address] [place] [address] [phone] Justin Londono MD [address] [place] [address] [phone] E-prescribe Rx Request Social History Tobacco Use [...] encounter Miscellaneous Notes * Telephone Encounter - Emmanuelle Diaz L.P.N. - 03/29/2017 11:10 AM EST NOTE WITH SCRIPT NEEDS APPT Lab Results Component Value Date ALB 4.5 01/12/2016 SGOT 16 01/12/2016 SGPT 18 01/12/2016 TBILI 0.2 01/12/2016 ALKPHOS 77 01/12/2016 TP 7.0 01/12/2016 . * Telephone Encounter - Janeth Lino - 03/29/2017 9:42 AM EST Patient would like script to be: E-PRESCRIBED/FAXED TO PHARMACY WHEN WAS THE PATIENT'S LAST APPOINTMENT IN ADULT MEDICINE? 02/15/17 WHEN WAS THE LAST TIME THE PATIENT SAW THEIR PCP? 05/18/16 Does patient have an upcoming appointment? Letter mailed to patient (THE MEDICATION REQUESTED IS ON THE MED LIST ABOVE) All of the medications requested were on the CURRENT MEDS list Did you check the Pharmacy information above?: YES Patient wants: 30 -day supply Is this a mail order prescription request ? NO Patients current insurance carrier is: Payor: WORKERS COMP / Plan: WORKERS COMPENSATION/[place] / Product Type: OTHER documented in this encounter Plan of Treatment Not on file documented as of this encounter Visit Diagnoses Not on filedocumented in this encounter Care Teams Debt Counselor Relationship Specialty Start Date End Date Justin Londono MD [address] [place] [address] PCP - General Internal Medicine 01/01/15 [facility] [address] [place] [address] PCP - General Internal Medicine 03/20/21 documented as of this encounter
--- NOTE | 2024-09-13 12:35 | AM.OFFWIN_ITS ---
Intake Vital Signs 09/13/24 12:40 Height 5 ft 6 in Weight 262 lb BMI 42.3 BP 115/77 Blood Pressure Location Rt brachial Position Sitting Pulse 98 Pulse Source Pulse Oximeter Temp 98.0 F Temp Source Oral Pulse Oximetry (%) 99 Oxygen Delivery Method Room Air Intake Visit Reasons: EP RT foot pain not WC Patient Tobacco Use Status: Former Tobacco user Allergies No Known Allergies [No Known Allergies*] Allergy (Verified 09/13/24 12:40) Do you need a note to return to daycare/school/sports/work: No HPI HPI Comments History of Present Illness Details History of Present Illness - The patient is a 43-year-old female pr esenting with right foot pain. - Reports a persistent pain at the top o f the right foot, ongoing for a duration of at least one month. - Denies a specific injury or unusual ac tivity that could have contributed to the condition. - Suspects a possible stress-related inj ury such as a stress fracture. - Experienced temporary pain relief with ibuprofen; however, the symptom recurs. - Noted a palpable lump associated with the painful area. - Pain is exacerbated by walking and yog a activities and mildly worsened by shoe pressure. - No associated ankle or toe pain was re ported. Physical Exam General: Cooperative, healthy appearing, comfortable, no acute distress and well developed Orientation: Patient oriented x3 Limitations: No limitations Head: Normal to inspection Ears: Hearing grossly normal bilaterally Nose: Normal External nose present Face and sinus: Normal facial exam Eyes: Appearance normal, both eyes and all related structures Neck: Normal visual inspection and Yes full ROM Respiratory: Normal respiratory effort and able to speak in complete sentences. Skin: No rashes or lesions noted Neuro: Patient oriented x3 Extremities: Lump noted on the top of the right foot, no TTP of this lump or the entire foot and toes and ankle. Full ROM ankle, foot and toes, toes are NVI. PFSH Medical History Low back pain Single delivery by H/O gastroesophageal reflux (GERD) Depression Anxiety Surgical History [place] teeth extracted History of carpal tunnel surgery Hx of section Family History Father Heart disease Mother Heart disease Social History Alcohol intake: current Alcohol intake frequency: holidays/special occasions only Patient Tobacco Use Status: Former Tobacco user Female Reproductive History Menstrual Age of Menarche: 14 Review of Systems Const All systems reviewed & are unremarkable except as noted in HPI and below Physical Exam Vital Signs: Last Vital Signs Temp 98.0 F 09/13/24 12:40 Pulse 98 09/13/24 12:40 BP 115/77 09/13/24 12:40 Pulse Ox 99 09/13/24 12:40 Oxygen Delivery Method Room Air 09/13/24 12:40 BMI result Body Mass Index 42.3 Assessment & Plan Assessment & Plan (1) Right foot pain: Code(s): M79.671 - Pain in right foot Plan: For the patient's right foot pain, characterized by a palpable lump on the upper right foot, I have requested an x-ray to rule out conditions such as stress fracture vs bone spur vs other. As ibuprofen only provides temporary relief, I have suggested trying Aleve, which may be more effective for treating musculoskeletal issues. The patient will be contacted with x-ray results by the end of the day. If the x-ray is inconclusive and symptoms persist, pt should follow up with her PCP. Patient was informed and verbally consented to the use of an ambient scribe for clinic note documentation during this visit. Orders: Orders XR foot RT min 3V Today M79.671 - Pain in right foot Coding Level of Care Code New Pt Level 4 (84314) Diagnoses Right foot pain M79.671
[2024-09-13 12:40] VITALS: BP 115/77; PULSE 98; TEMP 36.7; O2SAT 99; BMI 42.3
== END 2024-09-13 13:06 | disposition home or self-care (01) ==
PROVIDERS: PCP Nurse Practitioner Family; Visit Provider Physician Assistant
DX: M79.671 Pain in right foot (principal)

== ENCOUNTER → 2024-09-13 15:32 | Outpatient (BNV) | payer OTHER, SELFPAY | PROVIDERS: PCP Family Medicine; Visit Provider Radiology Diagnostic Radiology | DX: M79.671 Pain in right foot (principal) | CPT/HCPCS: 73630 ==

== ENCOUNTER → 2024-11-23 21:12 | Outpatient (BNV) | payer OTHER, SELFPAY | PROVIDERS: Emergency Provider Emergency Medicine; PCP Family Medicine; Visit Provider Radiology Diagnostic Radiology | DX: M25.572 Pain in left ankle and joints of left foot (principal) | CPT/HCPCS: 73610 ==

== ENCOUNTER 2024-11-23 21:33 | Emergency (ER) | payer OTHER, SELFPAY ==
--- NOTE | ~2024-11-23 | XR_ITS ---
CLINICAL HISTORY: rolled ankle Left ankle three views Comparison: None provided Findings: No acute fracture or dislocation identified. No acute focal bony abnormality. No radiopaque foreign body noted. Impression: No acute bony abnormality This document has been electronically signed by: Osito Neumann MD on 11/23/2024 23:16:01
[2024-11-23 21:39] VITALS: BP 142/93; PULSE 102; RESP 16; TEMP 36.6; O2SAT 98; BMI 37.6
--- NOTE | 2024-11-23 22:24 | ED.LOWEXIN ---
HPI - Extremity Injury (Lower) General Chief Complaint: Extremity Injury, Lower Stated Complaint: left ankle injury Time Seen by Provider: 11/23/24 22:14 Source: patient Mode of arrival: wheelchair Limitations: no limitations History of Present Illness ED Provider: Dr. Alley Leblanc HPI Narrative: Patient comes to the emergency room complaining of left ankle pain. Patient states that earlier today she was walking, states that 1 of her fluids labs might have gotten stuck to the ground and patient sprain her ankle. Patient reports that she has been unable to bear weight due to pain. Patient heard a loud pop. Soon after patient started complaining of localized swelling. Patient arrived using her own crutches. Related Data Home Medications ?Medication ?Instructions ?Recorded ?Confirmed lorazepam 1 mg tablet 1 mg PO BID PRN 04/01/21 07/12/24 omeprazole 20 mg tablet,delayed 20 mg PO DAILY 04/01/21 07/12/24 release escitalopram oxalate 20 mg tablet 20 mg PO DAILY 04/05/22 07/12/24 (Lexapro) albuterol sulfate 90 mcg/actuation 0 mcg inhalation 05/20/22 07/12/24 aerosol inhaler bupropion HCl 300 mg 24 hr tablet, mg PO DAILY 07/01/24 07/12/24 extended release butalbital 50 mg-acetaminophen 325 cap PO 09/13/24 mg-caffeine 40 mg-codeine 30 mg cap Previous Rx's ?Medication ?Instructions ?Recorded ondansetron 4 mg disintegrating 4 mg PO Q6-8H PRN nausea and 06/07/22 tablet vomiting #10 tabs acetaminophen 500 mg capsule 1,000 mg (2 x 500 mg) PO Q6H PRN 07/01/24 pain #30 caps cyclobenzaprine 10 mg tablet 10 mg PO BID #20 tabs 07/01/24 L norgest/E estradiol-E estrad 1 tab PO DAILY #91 tabs 07/12/24 0.15 mg-30 mcg (84)/10 mcg(7) tabs,3mos (Simpesse) acetaminophen 500 mg capsule 500 mg PO Q6H PRN pain #30 caps 11/23/24 ketorolac 10 mg tablet 10 mg PO TID PRN pain #12 tabs 11/23/24 oxycodone 5 mg tablet 5 mg PO BID PRN pain #6 tabs 11/23/24 Allergies Allergy/AdvReac Type Severity Reaction Status Date / Time No Known Allergies (No Known Allergy Verified 11/23/24 21:42 Allergies*) Review of Systems Review of Systems: Constitutional : No Weight loss, No Fever, No Chills, No Night Sweats, No Fatigue, No Malaise ENT/Mouth : No Hearing loss, No Ear Pain, No Nasal Congestion, No Sinus Pain, No Hoarseness, No sore throat, No Rhinorrhea, No Swallowing Difficulty Eyes: No Eye Pain, No Swelling, No Redness, No Foreign Body, No Discharge, No Vision Changes Cardiovascular : No Chest Pain, No SOB, No Dyspnea on Exertion, No Orthopnea, No Edema, No Palpitations Respiratory : No Cough, No Sputum, No Wheezing, No Smoke Exposure, No Dyspnea Gastrointestinal : No Nausea, No Vomiting, No Diarrhea, No Constipation, No abdominal Pain, No Hematochezia, No Melena Genitourinary : no irregular bleeding, No Dysuria, No Urinary Frequency, No Hematuria, No Urinary Incontinence, No Urgency, No Flank Pain, No Urinary Flow Changes, No Hesitancy Musculoskeletal : Complaining of left ankle pain, No Myalgias, No Joint Swelling Skin : No Skin Lesions, No rash Neuro : No Weakness, No Numbness, No Paresthesias, No Loss of Consciousness, No Dizziness, No Headache Psych : No Anxiety/Panic, No Depression, No SI/HI/AH/VH, No Social Issues, Heme/Lymph: No Bruising, No Bleeding,No Lymphadenopathy Endocrine : No Polyuria, No Polydipsia, No Temperature Intolerance PMFSH Past Medical History Medical History Low back pain Single delivery by H/O gastroesophageal reflux (GERD) Depression Anxiety Surgical History [place] teeth extracted History of carpal tunnel surgery Hx of section Family History Family History Father Heart disease Mother Heart disease Social History Social History Alcohol intake: current Alcohol intake frequency: a few times a week Alcohol type: wine Patient Tobacco Use Status: Former Tobacco user Smoked in Last 30 Days: Yes Use of substances other than those prescribed or required for medical reasons: No Advance Directives: No Advance Directives Information Provided: No Do you have a plan to hurt others: No Plan Patient : No Physical Exam Exam: Exam: Appearance: Alert. Oriented X3. No acute distress. Eyes: Pupils equal, round and reactive to light. ENT: Pharynx normal. Neck: Normal inspection. Neck supple. No lymph nodes noted. No crepitus CVS: Normal heart rate and rhythm. Pulses normal. Normal S1 and S2 Respiratory: No respiratory distress. Breath sounds normal. No Wheezing. No rales Abdomen: Soft and nontender. No rigidity. No distention. Skin: Skin warm and dry. Normal skin color. Normal skin turgor. Extremities: Left ankle on the medial malleolus looks swollen, mild ecchymosis. No obvious deformity Neuro: Oriented X 3. No motor deficit. No sensory deficit. Moving all extremities. No slurred speech. CN 2 through 12 grossly intact Psych: calm, cooperative, normal affect Vital Signs: Vital Signs: Last Vital Signs Temp 97.9 F 11/23/24 21:39 Pulse 102 H 11/23/24 21:39 Resp 16 11/23/24 21:39 BP 142/93 H 11/23/24 21:39 Pulse Ox 98 11/23/24 21:39 O2 Del Method Room Air 11/23/24 21:39 BMI result Body Mass Index 37.6 Course Course Course Narrative: Patient reports an ankle sprain, x-rays pending. Patient was given a dose of IM ketorolac Medications Administered Discontinued Medications Generic Name Dose Route Start Last Admin Trade Name Valente PRN Reason Stop Dose Admin Ketorolac Tromethamine 60 mg 11/23/24 22:30 11/23/24 22:44 Ketorolac Tromethamine 60 Mg/2 Ml Vial IM 11/23/24 22:31 60 mg ONCE ONE Administration Medical Decision Making Medical Decision Making [facility] Narrative: X-ray of the ankle does not show any acute abnormalities. Patient was given IM ketorolac with some relief but not enough, given p.o. oxycodone I discussed the x-ray with the patient, patient will follow-up with PCP. Patient also requested phone number for Orthopedics for follow-up. Differential Diagnosis Differential Diagnoses: The differential diagnosis associated with the presentation includes (Ankle sprain, ankle dislocation, ankle fracture, contusion) Independent Interpretation I performed an independent interpretation of an: Plain X-Ray Radiology Impression Discussion of test interpretation with radiology: I have reviewed the radiologist's reading. Radiologist Impression: No acute fracture or dislocation identified. No acute focal bony abnormality. No radiopaque foreign body noted. Discharge Plan Discharge Clinical Impression: Ankle sprain Patient Disposition: Home, Self-Care Instructions: Ankle Sprain (ED), Crutch Instructions (ED), P.R.I.C.E. Treatment (ED) Additional Instructions: Please follow-up with your primary care physician tomorrow. If you have any worsening or new symptoms, please return to the emergency room or call 911 Prescriptions: New ketorolac 10 mg tablet 10 mg PO TID PRN (Reason: pain) Qty: 12 0RF oxycodone 5 mg tablet 5 mg PO BID PRN (Reason: pain) Qty: 6 0RF Rx Instructions: Partial Fill upon patient request. Use only if ketorolac does not help alleviate the pain acetaminophen 500 mg capsule 500 mg PO Q6H PRN (Reason: pain) Qty: 30 0RF No Action ondansetron 4 mg tablet,disintegrating 4 mg PO Q6-8H PRN (Reason: nausea and vomiting) Qty: 10 0RF albuterol sulfate 90 mcg/actuation HFA aerosol inhaler 0 mcg inhalation escitalopram oxalate [Lexapro] 20 mg tablet 20 mg PO DAILY lorazepam 1 mg tablet 1 mg PO BID PRN omeprazole 20 mg tablet,delayed release (DR/EC) 20 mg PO DAILY bupropion HCl 300 mg tablet extended release 24 hr PO DAILY acetaminophen 500 mg capsule 1,000 mg PO Q6H PRN (Reason: pain) Qty: 30 0RF cyclobenzaprine 10 mg tablet 10 mg PO BID Qty: 20 0RF ocrfcjemsn-imzbwhcbwp-byn-cod 05-795-29-30 mg capsule PO L norgest/e.estradiol-e.estrad [Simpesse] 0.15 mg-30 mcg (84)/10 mcg (7) tablets,dose pack,3 month 1 tab PO DAILY Qty: 91 3RF Rx Instructions: RTC 1 year for blood pressure check... Print Language: Maltese
[2024-11-23] MEDS: oxyCODONE HCl Immed Release 5 MG TABLET PO (23:34)
[2024-11-23 23:46] VITALS: BP 156/109; PULSE 86; RESP 16; TEMP 37.2; O2SAT 98
== END 2024-11-24 00:11 | disposition home or self-care (01) ==
PROVIDERS: Emergency Provider Emergency Medicine; PCP Family Medicine
DX: S93.492A Sprain of other ligament of left ankle, initial encounter (principal); W01.0XXA Fall on same level from slipping, tripping and stumbling without subsequent striking against object, initial encounter; M25.572 Pain in left ankle and joints of left foot; Y93.9 Activity, unspecified; Y92.017 Garden or yard in single-family (private) house as the place of occurrence of the external cause; Y99.9 Unspecified external cause status
CPT/HCPCS: 73610; 96372; 99284; J1885